=== PATIENT | female | born 1930 | race Caucasian/White ===

== ENCOUNTER → 2017-01-13 | Outpatient (CLI) | payer MEDICARE ==
[~2017-01-13] MED LIST: ASP81TEC PO; CALC-654 PO; CALC-793 PO; CLD600T; FERR-57 PO; LEVO750T6 PO; LISI-556 PO; LISI2.5T56 PO; LISI5TAB PO; LORA10TA7 PO; MECL-106 PO; MULT-305 PO; MULT1TAB63; ONDA8TAB9 PO; SCOP1PAT TD
--- NOTE | 2017-01-13 17:28 | Diagnostic Imaging Report ---
EXAMINATION: PA and lateral views of the chest. COMPARISON: 09/16/2010. INDICATION: Productive cough. FINDINGS: The lungs are hyperinflated with no focal infiltrate. The heart size is normal. No effusion or pneumothorax. The mediastinum and ankit appear unremarkable. IMPRESSION: Hyperinflated clear lungs. Dictated by: Dictated on workstation # [id number]
== END ==
LOC: RAD 14:48
PROVIDERS: ATTEND Nurse Practitioner
DX: R05 Cough (principal)
CPT/HCPCS: 71020

== ENCOUNTER → 2017-07-09 | Outpatient (CLI) | payer MEDICARE ==
--- NOTE | 2017-07-09 10:39 | Diagnostic Imaging Report ---
EXAMINATION: DEXA scan. INDICATION: Osteopenia. TECHNIQUE: Bone mineral density estimated based on dual energy radiography over the lumbar spine and femoral necks, was performed. FINDINGS: The lumbar spine T-score is -1. This is 4.7% decreased density measurement compared to 2002. The T score in the left femoral neck is -2.1 and on the right side is -2.6. This is 12.6% decreased density measurement compared to 2002. IMPRESSION: Osteoporosis. Dictated by: Dictated on workstation # [id number]
--- NOTE | 2017-07-10 09:13 | Diagnostic Imaging Report ---
Bilateral screening mammogram 2D views with tomosynthesis The current study was also evaluated with a Computer Aided Detection (CAD) system. Indication: Screening. No current complaints stated on the questionnaire. COMPARISON: 06/24/2016. FINDINGS: The breasts are composed of heterogeneously dense parenchyma which may decrease mammographic sensitivity. Benign-appearing calcifications and vascular opacifications are seen. Allowing for technique and positional differences, no suspicious change is seen. IMPRESSION: Dense breasts with no definite change. ACR BI-RADS Category 2: Benign findings. Result letter will be mailed to the patient. Note: At least 10% of breast cancer is not imaged by mammography. Dictated by: Dictated on workstation # [id number]
== END ==
LOC: RAD 08:35
PROVIDERS: ATTEND Internal Medicine
DX: Z12.31 Encounter for screening mammogram for malignant neoplasm of breast (principal); M81.0 Age-related osteoporosis without current pathological fracture
CPT/HCPCS: 77080

== ENCOUNTER → 2018-01-01 | Outpatient (CLI) | payer MEDICARE ==
[~2018-01-01] MED LIST changes: +ACHD5005 PO; +ASPI-586 PO; +MULT-884 PO; -SCOP1PAT TD; +SCOP1PAT11 TD
--- NOTE | 2018-01-01 14:54 | Diagnostic Imaging Report ---
PROCEDURE: CT chest without contrast. TECHNIQUE: Multiple contiguous axial images were obtained through the chest without the use of intravenous contrast. INDICATION: Cough. COMPARISON: 10/01/2010 and correlated with chest radiograph performed earlier this same date. FINDINGS: There is no evidence for a lung mass. In particular, at the level of the right lower lobe laterally, no focal pulmonary parenchymal abnormality is evident. There are some areas of sclerosis involving the distal right sixth and seventh ribs which may have accounted for the opacity observed at x-ray. No acute chest wall pathology. Some minimal biapical pleural prequel scarring, chronic. Some trace linear scarring in the left lower lobe where a previous dense cavitary infiltrate was present. There is no effusion or pneumothorax. There is no hilar or mediastinal adenopathy. IMPRESSION: No evidence for lung mass. Trace scarring in the left lower lobe at the site of a previous cavitary infiltrate. Some benign appearing sclerotic changes and right ribs superimposed may have accounted for the radiographic opacity alerted to earlier today. No acute or suspicious finding is identified, however. Dictated by: Dictated on workstation # [id number]
== END ==
LOC: RAD 13:57
PROVIDERS: ATTEND Physician Assistant
DX: R05 Cough (principal)
CPT/HCPCS: 71250

== ENCOUNTER → 2018-01-01 | Outpatient (CLI) | payer MEDICARE ==
--- NOTE | 2018-01-01 10:48 | Diagnostic Imaging Report ---
Indication: Cough. Comparison: 01/13/2017 Findings: Two views of the chest are obtained. Heart size is normal. The pulmonary vessels appear unremarkable. There is no pneumothorax, mediastinal widening or pleural fluid. There is a new 1.9 cm nodular density over the lateral right lower lobe concerning for pulmonary nodule. The lungs are otherwise clear. There is some flattening of the diaphragm suggestive of COPD. There are degenerative changes in the spine. Impression: There is a new 1.9 cm nodular density in the lateral right lower lobe somewhat concerning for a pulmonary nodule and neoplasm is not excluded. In the absence of acute symptoms of pneumonia, CT scan of the chest is recommended for further evaluation. Faxed to [facility] at 10:45 a.m. by iliana. Dictated by: Dictated on workstation # [id number]
== END ==
LOC: RAD 10:06
PROVIDERS: ATTEND Physician Assistant
DX: R91.1 Solitary pulmonary nodule (principal)
CPT/HCPCS: 71046

== ENCOUNTER 2018-01-14 05:34 | Outpatient (CLI) | payer MEDICARE ==
[~2018-01-14] VITALS: Ht 160 cm; Wt 55.8 kg
[~2018-01-14 05:34] MED LIST changes: -ACHD5005 PO; -ASPI-586 PO; -MULT-884 PO
[2018-01-14] MEDS ORDERED: MULT-884 PO (09:58)
[2018-01-14] MEDS ORDERED: ASPI-586 PO (09:58)
[2018-01-18] MEDS ORDERED: ACHD5005 PO (12:20)
== END 2018-01-14 10:44 | disposition home or self-care (01) ==
LOC: PREOP 05:34
PROVIDERS: ATTEND Surgery
DX: Z29.8 Encounter for other specified prophylactic measures (principal)

== ENCOUNTER → 2018-08-23 | Outpatient (CLI) | payer MEDICARE ==
[~2018-08-23] MED LIST changes: +ACHD5005 PO; +ASPI-586 PO; +MULT-884 PO
--- NOTE | 2018-08-24 19:10 | Diagnostic Imaging Report ---
EXAMINATION: Digital mammogram bilateral screening with 3D tomosynthesis. The current study was also evaluated with a Computer Aided Detection (CAD) system. INDICATION: Screening. This study was compared to the prior exams of 07/09/2017, 06/24/2016, and 06/12/2015. At this time, there are no current complaints. FINDINGS: The fibroglandular tissue in both breasts is heterogeneously dense. This does limit the sensitivity of this exam. Overall, there does not appear to have been any significant change when compared to the prior study. No primary or secondary sign of malignancy is noted. 3D tomographic images fail to show any sign of malignancy. IMPRESSION: There is no radiographic evidence for malignancy. ACR BI-RADS Category 1: Negative. Result letter will be mailed to the patient. Note: At least 10% of breast cancer is not imaged by mammography. Dictated by: Dictated on workstation # [id number]
== END ==
LOC: RAD 10:42
PROVIDERS: ATTEND Internal Medicine
DX: Z12.31 Encounter for screening mammogram for malignant neoplasm of breast (principal)
CPT/HCPCS: 77067

== ENCOUNTER 2018-08-28 17:32 | Inpatient (IN) | payer MEDICARE ==
[~2018-08-28] VITALS: Ht 160 cm; Wt 56.9 kg
[2018-08-28] MEDS ORDERED: NS IV 500 ML 500 ML IV SCH ×2 (17:45→19:15)
--- NOTE | 2018-08-28 17:47 | ED Cough/URI ---
General Chief Complaint: Chest Wall/Rib Pain Stated Complaint: COUGH/BODY ACHES Source: patient Exam Limitations: no limitations History of Present Illness Date Seen by Provider: Aug 28, 2018 Time Seen by Provider: 17:45 Initial Comments To ER with concerns of pneumonia accompanied by her daughter. These have been ongoing symptoms since Thursday, so for about 4 days now. No fevers. Her cough is occasionally productive. She does have rhinorrhea and nasal congestion. She has a history of pneumonia and is concerned about that. 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 Not been drinking as much for the past 2-3 days because she has no appetite. States that her ribs are sore from coughing and the cough keeps her awake at night. Timing/Duration: constant Severity/Quality: productive cough Modifying Factors: Improves With Coughing Associated Symptoms: chest pain/soreness, cough, muscle aches, nasal congestion , nasal drainage, sore throat Allergies and Home Medications Allergies Coded Allergies: Penicillins (Verified Allergy, Unknown, 02/16/08) Sulfa (Sulfonamide Antibiotics) (Verified Allergy, Unknown, 02/16/08) erythromycin base (Verified Allergy, Unknown, 02/16/08) Home Medications Aspirin 81 Mg Tablet.dr, 81 MG PO HS, (Reported) Calcium Carbonate/Vitamin D3 1 Each Tablet, 1 TAB PO HS, (Reported) Hydrocodone Bit/Acetaminophen 1 Tab Tab, 1 TAB PO Q6H PRN Prescribed by: SEAN PAN on 01/18/18 1220 Lisinopril 5 Mg Tablet, 5 MG PO DAILY, (Reported) Multivits,Ca,Minerals/Iron/FA 1 Each Tablet, 1 EACH PO DAILY, (Reported) Patient Home Medication List Home Medication List Reviewed: Yes Review of Systems Review of Systems Constitutional: see HPI EENTM: see HPI, nose congestion Respiratory: see HPI, cough Cardiovascular: no symptoms reported Genitourinary: no symptoms reported Musculoskeletal: no symptoms reported Skin: no symptoms reported Psychiatric/Neurological: No Symptoms Reported Past Tqtpgmy-Dzmztj-Yjqkec Hx Patient Social History Recent Foreign Travel: No Contact w/Someone Who Travel: No Recent Hopitalizations: No Immunizations Up To Date Tetanus Booster (TDap): Unknown Date of Pneumonia Vaccine: Apr 03, 2008 Seasonal Allergies Seasonal Allergies: Yes Past Medical History Pneumonia Currently Using CPAP: No Currently Using BIPAP: No High Cholesterol, Hypertension Reproductive Disorders: No Sexually Transmitted Disease: No HIV/AIDS: No Chronic Constipation Arthritis Cataract Loss of Vision: Denies Hearing Impairment: Denies Melanoma Anxiety Adverse Reaction/Blood Tranf: No Family Medical History Neoplasm 19 MOTHER Physical Exam Vital Signs - First Documented 08/28/18 18:06 Temp 97.9 Pulse 110 Resp 20 B/P (MAP) 119/73 (88) Pulse Ox 94 O2 Delivery Room Air Capillary Refill : Height: 5'3.00" Weight: 123lbs. 0.0oz. 55.054564mm; 21.8 BMI Method:Stated General Appearance: WD/WN, no apparent distress Eyes: Bilateral Eye Normal Inspection, Bilateral Eye PERRL, Bilateral Eye EOMI HEENT: PERRL/EOMI, normal ENT inspection, TMs normal, pharyngeal erythema Neck: non-tender, full range of motion Respiratory: normal breath sounds, no respiratory distress, no accessory muscle use; No crackles, No rales, No rhonchi, No stridor, No wheezing Cardiovascular: tachycardia Gastrointestinal: normal bowel sounds, non tender, soft Neurologic/Psychiatric: alert, normal mood/affect, oriented x 3 Skin: normal color, warm/dry Progress/Results/Core Measures Suspected Sepsis SIRS Temperature: Pulse: Respiratory Rate: Laboratory Tests 08/28/18 17:53: White Blood Count 13.0H Blood Pressure / Mean: Laboratory Tests 08/28/18 17:53: Creatinine 0.83, Platelet Count 234, Total Bilirubin 0.9 Results/Orders Lab Results Laboratory Tests Test 08/28/18 17:53 Range/Units White Blood Count 13.0 H 4.3-11.0 10^3/uL Red Blood Count 4.09 L 4.35-5.85 10^6/uL Hemoglobin 12.4 11.5-16.0 G/DL Hematocrit 37 35-52 % Mean Corpuscular Volume 91 80-99 FL Mean Corpuscular Hemoglobin 30 25-34 PG Mean Corpuscular Hemoglobin Concent 33 32-36 G/DL Red Cell Distribution Width 13.8 10.0-14.5 % Platelet Count 234 130-400 10^3/uL Mean Platelet Volume 9.5 7.4-10.4 FL Neutrophils (%) (Auto) 85 H 42-75 % Lymphocytes (%) (Auto) 5 L 12-44 % Monocytes (%) (Auto) 9 0-12 % Eosinophils (%) (Auto) 0 0-10 % Basophils (%) (Auto) 0 0-10 % Neutrophils # (Auto) 11.1 H 1.8-7.8 X 10^3 Lymphocytes # (Auto) 0.6 L 1.0-4.0 X 10^3 Monocytes # (Auto) 1.2 H 0.0-1.0 X 10^3 Eosinophils # (Auto) 0.0 0.0-0.3 10^3/uL Basophils # (Auto) 0.0 0.0-0.1 10^3/uL Neutrophils % (Manual) 90 % Lymphocytes % (Manual) 4 % Monocytes % (Manual) 6 % Eosinophils % (Manual) 0 % Basophils % (Manual) 0 % Band Neutrophils 0 % Blood Morphology Comment NORMAL Erythrocyte Sedimentation Rate 99 H 0-30 MM/HR Sodium Level 126 L 135-145 MMOL/L Potassium Level 4.5 3.6-5.0 MMOL/L Chloride Level 95 L 98-107 MMOL/L Carbon Dioxide Level 20 L 21-32 MMOL/L Anion Gap 11 5-14 MMOL/L Blood Urea Nitrogen 16 7-18 MG/DL Creatinine 0.83 0.60-1.30 MG/DL Estimat Glomerular Filtration Rate > 60 BUN/Creatinine Ratio 19 Glucose Level 117 H 70-105 MG/DL Calcium Level 9.4 8.5-10.1 MG/DL Corrected Calcium 9.4 8.5-10.1 MG/DL Total Bilirubin 0.9 0.1-1.0 MG/DL Aspartate Amino Transf (AST/SGOT) 86 H 5-34 U/L Alanine Aminotransferase (ALT/SGPT) 59 H 0-55 U/L Alkaline Phosphatase 240 H 40-136 U/L C-Reactive Protein High Sensitivity 26.81 H 0.00-0.50 MG/DL Total Protein 7.7 6.4-8.2 GM/DL Albumin 4.0 3.2-4.5 GM/DL My Orders Orders - SAMI SHIPLEY FLEET ASSISTANT Cbc With Automated Diff (08/28/18 17:44) Erythrocyte Sedimentation Rate (08/28/18 17:44) Hs C Reactive Protein (08/28/18 17:44) Comprehensive Metabolic Panel (08/28/18 17:44) Chest Pa/Lat (2 View) (08/28/18 17:44) Iv Heplock-Insert (Order) (08/28/18 17:44) Influenza A And B Antigens (08/28/18 17:44) Ns Iv 500 Ml (Sodium Chloride 0.9%) (08/28/18 17:45) Rx-Acetaminophen/Codeine (Rx-Tylenol #3) (08/28/18 17:45) Manual Differential (08/28/18 17:53) Blood Culture (08/28/18 18:12) Ceftriaxone For Iv Use (Rocephin For I (08/28/18 18:15) Vital Signs/I&O 08/28/18 08/28/18 18:06 18:06 Temp 97.9 Pulse 110 Resp 20 B/P (MAP) 119/73 (88) Pulse Ox 94 O2 Delivery Room Air Capillary Refill : Departure Communication (Admissions) Time/Spoke to Admitting Phy: 18:[address] Brown. We will admit observation status for hydration, repeat labs in the morning. Will use Rocephin alone since she is allergic to macrolide. Impression Primary Impression: Right lower lobe pneumonia Additional Impressions: Hyponatremia Elevated LFTs Disposition: ADMITTED INPATIENT Condition: Stable Admissions Decision to Admit Reason: Admit from ER (General) Decision to Admit/Date: Aug 28, 2018 Time/Decision to Admit Time: 18:43 Departure-Patient Inst. Referrals: EZRA SIMMONS MD (PCP/Family) Primary Care Physician SAMI SHIPLEY APRN Aug 28, 2018 17:47
--- OUTSIDE RECORDS SUMMARY | 2018-08-28 17:57 | XMS REPORT | Encounter Summary ---
Author Author [facility] Organization [facility] Address Unknown Phone Unavailable Care Team Providers Care Edge Stainer Machine Name Role Phone Abner Bonilla MD Unavailable Unavailable Antwan Oro MD PCP Ed Robledo MD Unavailable Prince Peterson MD Unavailable Unavailable Rodri Caballero Unavailable Carissa Pena RN Unavailable Unavailable Antwan Ramirez MD Unavailable Reason for Visit * Reason Comments Other Encounter Details Care Team Description Date Type Department Rodri Caballero MBBS [address] [facility] [address] [place] [address] Other 08/19/2018 Telephone [facility] - Internal Medicine [facility] [address] [place] [address] Social History Date Tobacco Use Types Packs/Day Years Used Never Smoker Smokeless Tobacco: Never Used Alcohol Use Drinks/Week oz/Week Comments Yes 4-5 Standard 2.0 - 2.5 social drinker drinks or equivalent Sex Assigned at Date Recorded Not on file Industry Job Start Date Occupation Not on file Not on file Not on file Travel End Travel History Travel Start No recent travel history available. as of this encounter Miscellaneous Notes * Telephone Encounter - Patsy Garcia RN - 08/19/2018 2:36 PM CORPORATE DIRECTOR Received VM from patient asking if she needed labs prior to november appt. Verbal order from Dr. Caballero to have BMP. Order placed and patient notified. Will come early day of appt to have labs drawn at . ORATE DIRECTOR in this encounter Plan of Treatment Order Schedule Name Priority Associated Diagnoses Expected: 12/02/2018 (Approximate), Expires: 08/19/2019 BASIC METABOLIC PANEL Routine Chronic kidney disease, unspecified CKD stage as of this encounter Visit Diagnoses Diagnosis Chronic kidney disease, unspecified CKD stage - Primary in this encounter
--- OUTSIDE RECORDS SUMMARY | 2018-08-28 17:57 | XMS REPORT | Clinical Summary ---
Author Author [facility] Organization [facility] Address Unknown Phone Unavailable Care Team Providers Care Machine Operator Cane Cutter Name Role Phone Abner Bonilla MD Unavailable Unavailable Antwan Oro MD PCP Ed Robledo MD Unavailable Prince Peterson MD Unavailable Unavailable Rodri Caballero Unavailable Carissa Pena RN Unavailable Unavailable Antwan Ramirez MD Unavailable Source Comments Some departments are not documenting in the electronic medical record. If you do not see the information that you expected, contact Release of Information in the Health Information Management department at [phone] for further assistance in locating additional records.[facility] Allergies Comments Active Allergy Reactions Severity Noted Date Itraconazole HEADACHE, 12/11/2011 HALLUCINATION S Penicillins EDEMA 12/18/2010 Sulfa (Sulfonamide HIVES 12/18/2010 Antibiotics) Medications End Date Status Medication Sig Dispensed Refills Start Date Active lisinopril (PRINIVIL; Take 5 mg by 0 ZESTRIL) 5 mg PO tablet mouth daily. Active CALCIUM CARBONATE/VITAMIN Take 1 Tab by 0 D3 (CALCIUM 600 WITH mouth daily. VITAMIN D3 PO) Active Aspirin 81 mg Tab Take 1 Tab by 0 mouth daily. Active MULTIVITAMIN PO Take 1 Tab by 0 mouth daily. 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 12/18/2010 Lung mass 12/18/2010 History of renal failure 12/18/2010 Encounters Care Team Description Date Type Specialty Rodri Caballero MBBS Other 08/19/2018 Telephone Nephrology from Last 3 Months Immunizations Name Dates Previously Given Next Due Flu Vaccine Trivalent=>3 04/25/2013 Yo (Preservative Free) Flu Vaccine Trivalent >64 06/14/2015 Yo High-dose (Preservative Free) Pneumococcal Vaccine 04/25/2013 (23-Michelle Adult) Family History Medical History Relation Name Comments Cirrhosis Father Cancer Mother multiple myeloma Asthma Neg Hx Blood Clots Neg Hx COPD Neg Hx Coronary Artery Disease Neg Hx Cystic Fibrosis Neg Hx DVT Neg Hx Pulmonary Embolism Neg Hx Pulmonary Fibrosis Neg Hx Pulmonary HTN Neg Hx Relation Name Status Comments Father Mother Social History Date Tobacco Use Types Packs/Day [...] Travel Start No recent travel history available. Last Filed Vital Signs Time Taken Vital Sign Reading 12/24/2017 12:48 PM CDT Blood Pressure 120/82 12/24/2017 12:48 PM CDT Pulse 95 12/24/2017 12:42 PM CDT Temperature 36.7 C (98.1 F) 12/04/2016 1:09 PM CDT Respiratory Rate 16 06/05/2014 1:07 PM DEMURRAGE AGENT Oxygen Saturation 94% - Inhaled Oxygen - Concentration 12/24/2017 12:42 PM CDT Weight 56.1 kg (123 lb 9.6 oz) 12/24/2017 12:42 PM CDT Height 160 cm (5' 3") 12/24/2017 12:42 PM CDT Body Mass Index 21.89 Plan of Treatment Health Maintenance Due Date Last Done Comments PHYSICAL (COMPREHENSIVE) 1938 EXAM DTAP/TDAP VACCINES (1 - 1949 Tdap) SHINGLES RECOMBINANT 1981 VACCINE (1 of 2) OSTEOPOROSIS 1996 SCREENING/MONITORING PNEUMONIA (PCV13/PPSV23) 04/25/2014 04/25/2013 VACCINES (2 of 2 - PCV13) INFLUENZA VACCINE 02/24/2018 06/14/2015, 04/25/2013, 05/17/2012, Additional history exists Results Not on filefrom Last 3 Months Insurance Payer Benefit Subscriber ID Type Phone Address Plan / Group MEDICARE MEDICARE xxxxxxxxxx Medicare PART A AND B BCBS BCBS xxxxxxxxxxxx Medicare SUPPLEMENT Advance Directives Patient has advance care planning documents on file. For more information, please contact: [facility] [address] [place] [address]
--- OUTSIDE RECORDS SUMMARY | 2018-08-28 17:58 | XMS REPORT | Continuity of Care Document ---
Author Author [facility] Organization [facility] Address Unknown Phone Unavailable Allergies Active Description Code Type Severity Reaction Onset Reported/Identified Relationship to Patient Clinical Status Yes erythromycin base [id number] Drug Allergy Unknown N/A 02/16/2008 Yes Penicillins [id number] Drug Allergy Unknown N/A 02/16/2008 Yes Sulfa (Sulfonamide Antibiotics) [id number] Drug Allergy Unknown N/A 2007 Medications There is no data. Problems Date Dx Coded Attending Type Code Diagnosis Diagnosed By 06/26/2009 Ot 272.0 06/26/2009 Ot 285.9 06/26/2009 Ot 447.6 06/26/2009 Ot 583.9 06/26/2009 Ot 585.2 10/30/2009 Ot 447.6 10/30/2009 Ot V58.69 01/29/2010 Ot 447.6 01/29/2010 Ot 791.9 01/29/2010 Ot V58.69 04/30/2010 Ot 272.0 04/30/2010 Ot 447.6 04/30/2010 Ot 791.9 04/30/2010 Ot V58.69 08/06/2010 Ot 285.9 08/06/2010 Ot 486 08/06/2010 Ot 799.02 08/06/2010 Ot V12.59 08/06/2010 Ot V12.79 11/28/2010 Ot 791.9 ABN URINE FINDINGS NEC 11/28/2010 Ot V58.69 OTH MED,LT, CURRENT USE 11/28/2010 Ot V58.83 ENCOUNTER FOR THERAPEUTIC DRUG MONITORIN 02/26/2011 Ot 272.0 PURE HYPERCHOLESTEROLEM 02/26/2011 Ot 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.6 ARTERITIS NOS 02/26/2011 Ot 585.2 CHRONIC KIDNEY DISEASE, STAGE II (MILD) 02/26/2011 Ot 791.9 ABN URINE FINDINGS NEC 02/26/2011 Ot V58.69 OTH MED,LT, CURRENT USE 05/27/2011 Ot 447.6 ARTERITIS NOS 05/27/2011 Ot V58.69 OTH MED,LT, CURRENT USE 09/11/2011 Ot 447.6 ARTERITIS NOS 09/11/2011 Ot V58.69 OTH MED,LT, CURRENT USE 10/13/2011 Ot V58.69 OTH MED,LT, CURRENT USE 10/13/2011 Ot V58.83 ENCOUNTER FOR THERAPEUTIC DRUG MONITORIN 12/17/2011 Ot 447.6 ARTERITIS NOS 12/17/2011 Ot V58.69 OTH MED,LT, CURRENT USE 12/17/2011 Ot 117.3 ASPERGILLOSIS 12/17/2011 Ot 786.6 CHEST SWELLING/MASS/LUMP 12/17/2011 Ot V58.69 OTH MED,LT, CURRENT USE 03/14/2012 Ot 272.0 PURE HYPERCHOLESTEROLEM 03/14/2012 Ot 447.6 ARTERITIS NOS 03/14/2012 Ot 585.2 CHRONIC KIDNEY DISEASE, STAGE II (MILD) 03/14/2012 Ot 791.9 ABN URINE FINDINGS NEC 03/14/2012 Ot V58.69 OTH MED,LT, CURRENT USE 07/13/2012 Ot 117.3 ASPERGILLOSIS 07/13/2012 Ot V58.69 OTH MED,LT, CURRENT USE 07/24/2014 EZRA SIMMONS MD Ot V76.12 11/15/2014 Ot 272.0 11/15/2014 Ot 285.9 11/15/2014 Ot 583.9 11/15/2014 Ot 585.2 11/15/2014 Ot 583.9 11/15/2014 Ot 447.6 11/15/2014 Ot 791.9 11/15/2014 Ot V58.69 11/15/2014 Ot 272.0 11/15/2014 Ot V76.12 11/15/2014 Ot 272.0 11/15/2014 Ot 447.6 11/15/2014 Ot 791.9 11/15/2014 Ot V58.69 11/15/2014 Ot 268.9 11/15/2014 Ot 585.2 11/15/2014 Ot 447.6 11/15/2014 Ot V58.69 11/15/2014 Ot 486 11/15/2014 Ot 496 11/15/2014 Ot 486 11/15/2014 Ot 486 11/15/2014 Ot 486 11/15/2014 Ot 793.1 11/15/2014 Ot V81.5 11/15/2014 Ot 272.0 11/15/2014 Ot 585.2 11/15/2014 Ot 268.9 11/15/2014 Ot 793.89 11/15/2014 Ot V76.12 11/15/2014 Ot 793.80 11/15/2014 Ot 268.9 11/15/2014 Ot 272.0 11/15/2014 Ot 585.2 11/15/2014 Ot 588.81 11/15/2014 Ot 793.80 11/15/2014 Ot 786.6 11/15/2014 Ot V58.69 11/15/2014 Ot 784.0 11/15/2014 Ot 117.3 11/15/2014 Ot 447.6 11/15/2014 Ot 786.6 11/15/2014 Ot 117.3 11/15/2014 Ot 447.6 11/15/2014 Ot 786.6 11/15/2014 Ot 268.9 11/15/2014 Ot 583.9 11/15/2014 Ot 272.0 11/15/2014 Ot 447.6 11/15/2014 Ot 585.2 11/15/2014 Ot 791.9 11/15/2014 Ot V58.69 11/15/2014 Ot V76.12 11/15/2014 Ot 268.9 11/15/2014 Ot 272.0 11/15/2014 Ot 585.9 11/15/2014 Ot 272.4 11/15/2014 Ot 401.9 11/15/2014 Ot 447.6 11/15/2014 Ot V58.69 11/15/2014 Ot 117.3 11/15/2014 Ot V58.69 11/15/2014 Ot 268.9 11/15/2014 Ot 272.0 11/15/2014 Ot 585.1 11/15/2014 ELIZABETH KIM CHIEF INFORMATION SECURITY OFFICER Ot 401.9 11/15/2014 ELIZABETH KIM CHIEF INFORMATION SECURITY OFFICER Ot 447.6 11/15/2014 ELIZABETH KIM CHIEF INFORMATION SECURITY OFFICER Ot 791.9 11/15/2014 ELIZABETH KIM CHIEF INFORMATION SECURITY OFFICER Ot V58.69 11/15/2014 IRIS RAMESH, EZRA Gusman Ot V76.12 11/15/2014 KUSHAL RAMESH, AVA Mahan Ot 268.9 11/15/2014 KUSHAL RAMESH, AHMAD M Ot 447.8 11/15/2014 KUSHAL RAMESH, CAMELIAMAD M Ot 585.9 11/15/2014 KUSHAL RAMESH, AVA M Ot 268.9 11/15/2014 KUSHAL RAMESH, AVA M Ot 447.8 11/15/2014 IRIS RAMESH, EZRA Gusman Ot 401.9 11/15/2014 IRIS RAMESH, EZRA Gusman Ot 447.6 11/15/2014 IRIS RAMESH, EZRA Gusman Ot V58.69 11/15/2014 KUSHAL RAMESH, CAMELIANAN M Ot 268.9 11/15/2014 KUSHAL RAMESH, CAMELIAMANaseem M Ot 585.9 11/15/2014 KUSHAL RAMESH, AVA M Ot 255.9 11/15/2014 KUSHAL RAMESH, AVA M Ot 268.9 11/15/2014 KUSHAL RAMESH, MARYNaseem M Ot 585.9 11/15/2014 KUSHAL RAMESH, CAMELIANAN M Ot 791.0 11/15/2014 IRIS RAMESH, EZRA Gusman Ot V76.12 12/08/2014 KUSHAL RAMESH, CAMELIANAN M Ot 447.6 05/31/2015 KUSHAL RAMESH, MARYD M Ot I77.6 07/04/2015 IRIS RAMESH, EZRA Gusman Ot Z12.31 12/26/2015 Ot 574.20 12/26/2015 Ot 592.0 01/25/2016 Ot 268.9 VITAMIN D DEFICIENCY NOS 01/25/2016 Ot 268.9 VITAMIN D DEFICIENCY NOS 01/25/2016 Ot 272.0 PURE HYPERCHOLESTEROLEM 01/25/2016 Ot 585.9 CHRONIC KIDNEY DISEASE, UNSPECIFIED 03/27/2016 Ot 574.20 03/27/2016 Ot 592.0 03/27/2016 Ot 268.9 VITAMIN D DEFICIENCY NOS 03/27/2016 Ot 272.0 PURE HYPERCHOLESTEROLEM 03/27/2016 Ot 585.9 CHRONIC KIDNEY DISEASE, UNSPECIFIED 04/04/2016 ANNA LEA DO Ot I10 ESSENTIAL (PRIMARY) HYPERTENSION 04/04/2016 ANNA LEA DO Ot N39.0 URINARY TRACT INFECTION, SITE NOT SPECIF 04/04/2016 ANNA LEA DO Ot R42 DIZZINESS AND GIDDINESS 04/04/2016 LEA DO, ANNA Ot 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 04/04/2016 ANNA LEA DO Ot I10 ESSENTIAL (PRIMARY) HYPERTENSION 04/04/2016 ANNA LEA DO Ot N39.0 URINARY TRACT INFECTION, SITE NOT SPECIF 04/04/2016 ANNA LEA DO Ot R42 DIZZINESS AND GIDDINESS 04/04/2016 ANNA LEA DO Ot 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 04/07/2016 Ot 272.0 PURE HYPERCHOLESTEROLEM 04/07/2016 Ot 585.2 CHRONIC KIDNEY DISEASE, STAGE II (MILD) 04/07/2016 Ot 268.9 VITAMIN D DEFICIENCY NOS 04/07/2016 Ot 793.89 OTH (ABN) FINDINGS ON RADIOLOGICAL EXAMI 04/07/2016 Ot V76.12 OTH SCREEN MAMMO-MALIGN NEOPLASM OF DONTRELL 04/07/2016 Ot 793.80 UNSPEC ABNORMAL MAMMOGRAM 04/07/2016 Ot 268.9 VITAMIN D DEFICIENCY NOS 04/07/2016 Ot 272.0 PURE HYPERCHOLESTEROLEM 04/07/2016 Ot 585.2 CHRONIC KIDNEY DISEASE, STAGE II (MILD) 04/07/2016 Ot 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 04/07/2016 Ot 793.80 UNSPEC ABNORMAL MAMMOGRAM 04/07/2016 Ot 786.6 CHEST SWELLING/MASS/LUMP 04/07/2016 Ot V58.69 OTH MED,LT, CURRENT USE 04/07/2016 Ot 784.0 HEADACHE 04/07/2016 Ot 117.3 ASPERGILLOSIS 04/07/2016 Ot 447.6 ARTERITIS NOS 04/07/2016 Ot 786.6 CHEST SWELLING/MASS/LUMP 04/07/2016 Ot 117.3 ASPERGILLOSIS 04/07/2016 Ot 447.6 ARTERITIS NOS 04/07/2016 Ot 786.6 CHEST SWELLING/MASS/LUMP 04/07/2016 Ot 268.9 VITAMIN D DEFICIENCY NOS 04/07/2016 Ot 583.9 NEPHRITIS NOS 04/07/2016 Ot 272.0 PURE HYPERCHOLESTEROLEM 04/07/2016 Ot 447.6 ARTERITIS NOS 04/07/2016 Ot 585.2 CHRONIC KIDNEY DISEASE, STAGE II (MILD) 04/07/2016 Ot 791.9 ABN URINE FINDINGS NEC 04/07/2016 Ot V58.69 OTH MED,LT, CURRENT USE 04/07/2016 Ot V76.12 OTH SCREEN MAMMO-MALIGN NEOPLASM OF [place]RE[place] 04/07/2016 Ot 268.9 VITAMIN D DEFICIENCY NOS 04/07/2016 Ot 272.0 PURE HYPERCHOLESTEROLEM 04/07/2016 Ot 585.9 CHRONIC KIDNEY DISEASE, UNSPECIFIED 04/07/2016 Ot 272.4 HYPERLIPIDEMIA NEC/NOS 04/07/2016 Ot 401.9 HYPERTENSION NOS 04/07/2016 Ot 447.6 ARTERITIS NOS 04/07/2016 Ot V58.69 OTH MED,LT, CURRENT USE 04/07/2016 Ot 117.3 ASPERGILLOSIS 04/07/2016 Ot V58.69 OTH MED,LT, CURRENT USE 04/07/2016 Ot 268.9 VITAMIN D DEFICIENCY NOS 04/07/2016 Ot 272.0 PURE HYPERCHOLESTEROLEM 04/07/2016 Ot 585.1 CHRONIC KIDNEY DISEASE, STAGE I 04/07/2016 ELIZABETH KIM CHIEF INFORMATION SECURITY OFFICER Ot 401.9 HYPERTENSION NOS 04/07/2016 ELIZABETH KIM CHIEF INFORMATION SECURITY OFFICER Ot 447.6 ARTERITIS NOS 04/07/2016 ELIZABETH KIM CHIEF INFORMATION SECURITY OFFICER Ot 791.9 ABN URINE FINDINGS NEC 04/07/2016 ELIZABETH KIM CHIEF INFORMATION SECURITY OFFICER Ot V58.69 OTH MED,LT,CURRENT USE 04/07/2016 IRIS RAMESH, EZRA Gusman Ot V76.12 OTH SCREEN MAMMO-MALIGN NEOPLASM OF DONTRELL 04/07/2016 AVA FATIMA MD Ot 268.9 VITAMIN D DEFICIENCY NOS 04/07/2016 AVA FATIMA MD Ot 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 04/07/2016 AVA FATIMA MD Ot 585.9 CHRONIC KIDNEY DISEASE, UNSPECIFIED 04/07/2016 AVA FATIMA MD Ot 268.9 VITAMIN D DEFICIENCY NOS 04/07/2016 AVA FATIMA MD Ot 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 04/07/2016 EZRA SIMMONS MD Ot 401.9 HYPERTENSION NOS 04/07/2016 EZRA SIMMONS MD Ot 447.6 ARTERITIS NOS 04/07/2016 EZRA SIMMONS MD Ot V58.69 OTH MED,LT,CURRENT USE 04/07/2016 AVA FATIMA MD Ot 268.9 VITAMIN D DEFICIENCY NOS 04/07/2016 AVA FATIMA MD Ot 585.9 CHRONIC KIDNEY DISEASE, UNSPECIFIED 04/07/2016 KUSHAL RAMESH, AVA Mahan Ot 255.9 ADRENAL DISORDER N0S 04/07/2016 KUSHAL RAMESH, AVA Mahan Ot 268.9 VITAMIN D DEFICIENCY NOS 04/07/2016 KUSHAL RAMESH, AVA Mahan Ot 585.9 CHRONIC KIDNEY DISEASE, UNSPECIFIED 04/07/2016 KUSHAL RAMESH, AVA Mahan Ot 791.0 PROTEINURIA 04/07/2016 IRIS RAMESH, EZRA Gusman Ot V76.12 OTH SCREEN MAMMO-MALIGN NEOPLASM OF DONTRELL 04/07/2016 KUSHAL RAMESH, AVA Mahan Ot 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.6 ARTERITIS NOS 04/07/2016 KUSHAL RAMESH, AVA Mahan Ot I77.6 ARTERITIS, UNSPECIFIED 04/07/2016 IRIS RAMESH, EZRA Gusman Ot Z12.31 ENCNTR SCREEN MAMMOGRAM FOR MALIGNANT NE 05/12/2016 Ot 272.0 PURE HYPERCHOLESTEROLEM 05/12/2016 Ot 585.2 CHRONIC KIDNEY DISEASE, STAGE II (MILD) 05/12/2016 Ot 268.9 VITAMIN D DEFICIENCY NOS 05/12/2016 Ot 793.89 OTH (ABN) FINDINGS ON RADIOLOGICAL EXAMI 05/12/2016 Ot V76.12 OTH SCREEN MAMMO-MALIGN NEOPLASM OF DONTRELL 05/12/2016 Ot 793.80 UNSPEC ABNORMAL MAMMOGRAM 05/12/2016 Ot 268.9 VITAMIN D DEFICIENCY NOS 05/12/2016 Ot 272.0 PURE HYPERCHOLESTEROLEM 05/12/2016 Ot 585.2 CHRONIC KIDNEY DISEASE, STAGE II (MILD) 05/12/2016 Ot 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 05/12/2016 Ot 793.80 UNSPEC ABNORMAL MAMMOGRAM 05/12/2016 Ot 786.6 CHEST SWELLING/MASS/LUMP 05/12/2016 Ot V58.69 OTH MED,LT, CURRENT USE 05/12/2016 Ot 784.0 HEADACHE 05/12/2016 Ot 117.3 ASPERGILLOSIS 05/12/2016 Ot 447.6 ARTERITIS NOS 05/12/2016 Ot 786.6 CHEST SWELLING/MASS/LUMP 05/12/2016 Ot 117.3 ASPERGILLOSIS 05/12/2016 Ot 447.6 ARTERITIS NOS 05/12/2016 Ot 786.6 CHEST SWELLING/MASS/LUMP 05/12/2016 Ot 268.9 VITAMIN D DEFICIENCY NOS 05/12/2016 Ot 583.9 NEPHRITIS NOS 05/12/2016 Ot 272.0 PURE HYPERCHOLESTEROLEM 05/12/2016 Ot 447.6 ARTERITIS NOS 05/12/2016 Ot 585.2 CHRONIC KIDNEY DISEASE, STAGE II (MILD) 05/12/2016 Ot 791.9 ABN URINE FINDINGS NEC 05/12/2016 Ot V58.69 OTH MED,LT, CURRENT USE 05/12/2016 Ot V76.12 OTH SCREEN MAMMO-MALIGN NEOPLASM OF DONTRELL 05/12/2016 Ot 268.9 VITAMIN D DEFICIENCY NOS 05/12/2016 Ot 272.0 PURE HYPERCHOLESTEROLEM 05/12/2016 Ot 585.9 CHRONIC KIDNEY DISEASE, UNSPECIFIED 05/12/2016 Ot 272.4 HYPERLIPIDEMIA NEC/NOS 05/12/2016 Ot 401.9 HYPERTENSION NOS 05/12/2016 Ot 447.6 ARTERITIS NOS 05/12/2016 Ot V58.69 OTH MED,LT, CURRENT USE 05/12/2016 Ot 117.3 ASPERGILLOSIS 05/12/2016 Ot V58.69 OTH MED,LT, CURRENT USE 05/12/2016 Ot 268.9 VITAMIN D DEFICIENCY NOS 05/12/2016 Ot 272.0 PURE HYPERCHOLESTEROLEM 05/12/2016 Ot 585.1 CHRONIC KIDNEY DISEASE, STAGE I 05/12/2016 ELIZABETH KIM CHIEF INFORMATION SECURITY OFFICER Ot 401.9 HYPERTENSION NOS 05/12/2016 ELIZABETH KIM CHIEF INFORMATION SECURITY OFFICER Ot 447.6 ARTERITIS NOS 05/12/2016 ELIZABETH KIM APRN Ot 791.9 ABN URINE FINDINGS NEC 05/12/2016 ELIZABETH KIM APRN Ot V58.69 OTH MED,LT,CURRENT USE 05/12/2016 EZRA SIMMONS MD Ot V76.12 OTH SCREEN MAMMO-MALIGN NEOPLASM OF DONTRELL 05/12/2016 KUSHAL RAMESH, AVA Mahan Ot 268.9 VITAMIN D DEFICIENCY NOS 05/12/2016 AVA FATIMA MD Ot 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 05/12/2016 AVA FATIMA MD Ot 585.9 CHRONIC KIDNEY DISEASE, UNSPECIFIED 05/12/2016 AVA FATIMA MD Ot 268.9 VITAMIN D DEFICIENCY NOS 05/12/2016 AVA FATIMA MD Ot 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 05/12/2016 EZRA SIMMONS MD Ot 401.9 HYPERTENSION NOS 05/12/2016 EZRA SIMMONS MD Ot 447.6 ARTERITIS NOS 05/12/2016 EZRA SIMMONS MD Ot V58.69 OTH MED,LT,CURRENT USE 05/12/2016 KUSHAL RAMESH, AVA Mahan Ot 268.9 VITAMIN D DEFICIENCY NOS 05/12/2016 KUSHAL RAMESH, AVA Mahan Ot 585.9 CHRONIC KIDNEY DISEASE, UNSPECIFIED 05/12/2016 AVA FATIMA MD Ot 255.9 ADRENAL DISORDER N0S 05/12/2016 AVA FATIMA MD Ot 268.9 VITAMIN D DEFICIENCY NOS 05/12/2016 AVA FATIMA MD Ot 585.9 CHRONIC KIDNEY DISEASE, UNSPECIFIED 05/12/2016 AVA FATIMA MD Ot 791.0 PROTEINURIA 05/12/2016 EZRA SIMMONS MD Ot V76.12 OTH SCREEN MAMMO-MALIGN NEOPLASM OF DONTRELL 05/12/2016 AVA FATIMA MD Ot 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.6 ARTERITIS NOS 05/12/2016 AVA FATIMA MD Ot I77.6 ARTERITIS, UNSPECIFIED 05/12/2016 EZRA SIMMONS MD Ot Z12.31 ENCNTR SCREEN MAMMOGRAM FOR MALIGNANT NE 05/13/2016 AVA FATIMA MD Ot I77.6 ARTERITIS, UNSPECIFIED 06/03/2016 AVA FATIMA MD Ot I77.6 ARTERITIS, UNSPECIFIED 06/06/2016 AVA FATIMA MD Ot N18.9 CHRONIC KIDNEY DISEASE, UNSPECIFIED 06/25/2016 EZRA SIMMONS MD Ot Z12.31 ENCNTR SCREEN MAMMOGRAM FOR MALIGNANT NE 06/25/2016 EZRA SIMMONS MD Ot Z12.31 ENCNTR SCREEN MAMMOGRAM FOR MALIGNANT NE 06/27/2016 AVA FATIMA MD Ot N18.9 CHRONIC KIDNEY DISEASE, UNSPECIFIED 07/15/2016 EZRA SIMMONS MD Ot Z12.31 ENCNTR SCREEN MAMMOGRAM FOR MALIGNANT NE 01/14/2017 ELIZABETH KIM CHIEF INFORMATION SECURITY OFFICER Ot R05 COUGH 02/05/2017 ELIZABETH KIM APRN Ot R05 COUGH 02/16/2017 ELIZABETH KIM CHIEF INFORMATION SECURITY OFFICER Ot R05 COUGH 07/09/2017 EZRA SIMMONS MD Ot M81.0 AGE-RELATED OSTEOPOROSIS W/O CURRENT PAT 07/09/2017 EZRA SIMMONS MD Ot Z12.31 ENCNTR SCREEN MAMMOGRAM FOR MALIGNANT NE 07/30/2017 EZRA SIMMONS MD Ot M81.0 AGE-RELATED OSTEOPOROSIS W/O CURRENT PAT 07/30/2017 EZRA SIMMONS MD Ot Z12.31 ENCNTR SCREEN MAMMOGRAM FOR MALIGNANT NE 01/01/2018 Ot 117.3 ASPERGILLOSIS 01/01/2018 Ot V58.69 OTH MED,LT, CURRENT USE 01/01/2018 Ot 268.9 VITAMIN D DEFICIENCY NOS 01/01/2018 Ot 272.0 PURE HYPERCHOLESTEROLEM 01/01/2018 Ot 585.1 CHRONIC KIDNEY DISEASE, STAGE I 01/01/2018 ELIZABETH KIM CHIEF INFORMATION SECURITY OFFICER Ot 401.9 HYPERTENSION NOS 01/01/2018 ELIZABETH KIM APRN Ot 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9 HYPERTENSION NOS 01/01/2018 EZRA SIMMONS MD Ot 447.6 ARTERITIS NOS 01/01/2018 EZRA SIMMONS MD Ot V58.69 OTH MED,LT,CURRENT USE 01/01/2018 AVA FATIMA MD Ot 268.9 VITAMIN D DEFICIENCY NOS 01/01/2018 AVA FATIMA MD Ot 585.9 CHRONIC KIDNEY DISEASE, UNSPECIFIED 01/01/2018 AVA FATIMA MD Ot 255.9 ADRENAL DISORDER N0S 01/01/2018 AVA FATIMA MD Ot 268.9 VITAMIN D DEFICIENCY NOS 01/01/2018 AVA FAITMA MD Ot 585.9 CHRONIC KIDNEY DISEASE, UNSPECIFIED 01/01/2018 KUSHAL RAMESH, AVA Mahan Ot 791.0 PROTEINURIA 01/01/2018 IRIS RAMESH, EZRA Gusman Ot V76.12 OTH SCREEN MAMMO-MALIGN NEOPLASM OF DONTRELL 01/01/2018 KUSHAL RAMESH, AVA Mahan Ot 447.6 ARTERITIS NOS 01/01/2018 AVA FATIMA MD Ot I77.6 ARTERITIS, UNSPECIFIED 01/01/2018 EZRA SIMMONS MD Ot Z12.31 ENCNTR SCREEN MAMMOGRAM FOR MALIGNANT NE 01/01/2018 AVA FATIMA MD Ot I77.6 ARTERITIS, UNSPECIFIED 01/01/2018 AVA FATIMA MD Ot N18.9 CHRONIC KIDNEY DISEASE, UNSPECIFIED 01/01/2018 EZRA SIMMONS MD Ot Z12.31 ENCNTR SCREEN MAMMOGRAM FOR MALIGNANT NE 01/01/2018 ELIZABETH KIM APRN Ot R05 COUGH 01/01/2018 EZRA SIMMONS MD Ot M81.0 AGE-RELATED OSTEOPOROSIS W/O CURRENT PAT 01/01/2018 EZRA SIMMONS MD Ot Z12.31 ENCNTR SCREEN MAMMOGRAM FOR MALIGNANT NE 01/04/2018 BARBARA PANTOJA Ot R91.1 SOLITARY PULMONARY NODULE 01/14/2018 SEAN PAN DO Ot Z29.8 ENCOUNTER FOR OTHER SPECIFIED PROPHYLACT 01/14/2018 SEAN PAN DO Ot Z29.8 ENCOUNTER FOR OTHER SPECIFIED PROPHYLACT 01/18/2018 SEAN PAN DO Ot 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, 01/18/2018 SEAN PAN DO Ot E78.5 HYPERLIPIDEMIA, UNSPECIFIED 01/18/2018 SEAN PAN DO Ot I10 ESSENTIAL (PRIMARY) HYPERTENSION 01/18/2018 SEAN PAN DO Ot Z11.2 ENCOUNTER FOR SCREENING FOR OTHER BACTER 01/18/2018 SEAN PAN DO Ot Z79.82 GUSSET RIPPER (CURRENT) USE OF ASPIRIN 01/18/2018 KATHE PAN DOIC Krystian Ot Z79.899 OTHER SENIOR CARE (CURRENT) DRUG THERAPY 01/19/2018 SEAN PAN DO Ot 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, 01/19/2018 KATHE PAN DOIC B Ot E78.5 HYPERLIPIDEMIA, UNSPECIFIED 01/19/2018 KATHE PAN DOIC Krystian Ot I10 ESSENTIAL (PRIMARY) HYPERTENSION 01/19/2018 KATHE PAN DOIC Krystian Ot Z11.2 ENCOUNTER FOR SCREENING FOR OTHER BACTER 01/19/2018 KATHE PAN DOIC Krystian Ot Z79.82 GUSSET RIPPER (CURRENT) USE OF ASPIRIN 01/19/2018 SEAN PAN DO Ot Z79.899 OTHER SENIOR CARE (CURRENT) DRUG THERAPY 01/21/2018 BARBARA PANTOJA L Ot R05 COUGH 01/25/2018 BARBARA PANTOJA Ot R91.1 SOLITARY PULMONARY NODULE 01/26/2018 BARBARA PANTOJA Ot R05 COUGH 01/28/2018 BARBARA PANTOJA Ot R91.1 SOLITARY PULMONARY NODULE 03/18/2018 EZRA SIMMOSN MD Ot M81.0 AGE-RELATED OSTEOPOROSIS W/O CURRENT PAT 03/18/2018 EZRA SIMMONS MD Ot Z12.31 ENCNTR SCREEN MAMMOGRAM FOR MALIGNANT NE 03/19/2018 EZRA SIMMONS MD Ot M81.0 AGE-RELATED OSTEOPOROSIS W/O CURRENT PAT 03/19/2018 EZRA SIMMONS MD Ot Z12.31 ENCNTR SCREEN MAMMOGRAM FOR MALIGNANT NE 08/23/2018 EZRA SIMMONS MD Ot V76.12 OTH SCREEN MAMMO-MALIGN NEOPLASM OF DONTRELL 08/23/2018 AVA FATIMA MD Ot 268.9 VITAMIN D DEFICIENCY NOS 08/23/2018 AVA FATIMA MD Ot 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 08/23/2018 AVA FATIMA MD Ot 585.9 CHRONIC KIDNEY DISEASE, UNSPECIFIED 08/23/2018 AVA FATIMA MD Ot 268.9 VITAMIN D DEFICIENCY NOS 08/23/2018 AVA FATIMA MD Ot 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 08/23/2018 EZRA SIMMONS MD Ot 401.9 HYPERTENSION NOS 08/23/2018 IRIS RAMESH, EZRA Gusman Ot 447.6 ARTERITIS NOS 08/23/2018 EZRA SIMMONS MD Ot V58.69 OTH MED,LT,CURRENT USE 08/23/2018 KUSHAL RAMESH, AVA Mahan Ot 268.9 VITAMIN D DEFICIENCY NOS 08/23/2018 KUSHAL RAMESH, AVA Mahan Ot 585.9 CHRONIC KIDNEY DISEASE, UNSPECIFIED 08/23/2018 KUSHAL RAMESH, AVA Mahan Ot 255.9 ADRENAL DISORDER N0S 08/23/2018 KUSHAL RAMESH, AVA Mahan Ot 268.9 VITAMIN D DEFICIENCY NOS 08/23/2018 KUSHAL RAMESH, AVA Mahan Ot 585.9 CHRONIC KIDNEY DISEASE, UNSPECIFIED 08/23/2018 KUSHAL RAMESH, AVA Mahan Ot 791.0 PROTEINURIA 08/23/2018 EZRA SIMMONS MD Ot V76.12 OTH SCREEN MAMMO-MALIGN NEOPLASM OF DONTRELL 08/23/2018 AVA FATIMA MD Ot 447.6 ARTERITIS NOS 08/23/2018 KUSHAL RAMESH, AVA Mahan Ot I77.6 ARTERITIS, UNSPECIFIED 08/23/2018 EZRA SIMMONS MD Ot Z12.31 ENCNTR SCREEN MAMMOGRAM FOR MALIGNANT NE 08/23/2018 AVA FATIMA MD Ot I77.6 ARTERITIS, UNSPECIFIED 08/23/2018 AVA FATIMA MD Ot N18.9 CHRONIC KIDNEY DISEASE, UNSPECIFIED 08/23/2018 EZRA SIMMONS MD Ot Z12.31 ENCNTR SCREEN MAMMOGRAM FOR MALIGNANT NE 08/23/2018 ELIZABETH KIM APRN Ot R05 COUGH 08/23/2018 EZRA SIMMONS MD Ot M81.0 AGE-RELATED OSTEOPOROSIS W/O CURRENT PAT 08/23/2018 EZRA SIMMONS MD Ot Z12.31 ENCNTR SCREEN MAMMOGRAM FOR MALIGNANT NE 08/23/2018 BARBARA PANTOJA Ot R91.1 SOLITARY PULMONARY NODULE 08/23/2018 BARBARA PANTOJA Ot R05 COUGH 08/23/2018 EZRA SIMMONS MD Ot Z12.31 ENCNTR SCREEN MAMMOGRAM FOR MALIGNANT NE 08/24/2018 EZRA SIMMONS MD Ot Z12.31 ENCNTR SCREEN MAMMOGRAM FOR MALIGNANT NE Procedures There is no data. Results Test Result Range Complete blood count (CBC) with automated white blood cell (WBC) differential - 04/03/16 12:00 Blood leukocytes automated count (number/volume) 7.1 10*3/uL 4.3-11.0 Blood erythrocytes automated count (number/volume) 4.45 10*6/uL 4.35-5.85 Venous blood hemoglobin measurement (mass/volume) 13.5 g/dL 11.5-16.0 Blood hematocrit (volume fraction) 40 % 35-52 Automated erythrocyte mean corpuscular volume 91 [foz_us] 80-99 Automated erythrocyte mean corpuscular hemoglobin (mass per erythrocyte) 30 pg 25-34 Automated erythrocyte mean corpuscular hemoglobin concentration measurement ( mass/volume) 33 g/dL 32-36 Automated erythrocyte distribution width ratio 14.6 % 10.0-14.5 Automated blood platelet count (count/volume) 226 10*3/uL 130-400 Automated blood platelet mean volume measurement 9.9 [foz_us] 7.4-10.4 Automated blood neutrophils/100 leukocytes 78 % 42-75 Automated blood lymphocytes/100 leukocytes 12 % 12-44 Blood monocytes/100 leukocytes 8 % 0-12 Automated blood eosinophils/100 leukocytes 1 % 0-10 Automated blood basophils/100 leukocytes 1 % 0-10 Blood neutrophils automated count (number/volume) 5.5 10*3 1.8-7.8 Blood lymphocytes automated count (number/volume) 0.9 10*3 1.0-4.0 Blood monocytes automated count (number/volume) 0.6 10*3 0.0-1.0 Automated eosinophil count 0.1 10*3/uL 0.0-0.3 Automated blood basophil count (count/volume) 0.1 10*3/uL 0.0-0.1 Comprehensive metabolic panel - 04/03/16 12:00 Serum or plasma sodium measurement (moles/volume) 135 mmol/L 135-145 Serum or plasma potassium measurement (moles/volume) 4.2 mmol/L 3.6-5.0 Serum or plasma chloride measurement (moles/volume) 103 mmol/L 98-107 Carbon dioxide 20 mmol/L 21-32 Serum or plasma anion gap determination (moles/volume) 12 mmol/L 5-14 Serum or plasma urea nitrogen measurement (mass/volume) 20 mg/dL 7-18 Serum or plasma creatinine measurement (mass/volume) 0.80 mg/dL 0.60-1.30 Serum or plasma urea nitrogen/creatinine mass ratio 25 NRG Serum or plasma creatinine measurement with calculation of estimated glomerular filtration rate > NRG Serum or plasma glucose measurement (mass/volume) 108 mg/dL 70-105 Serum or plasma calcium measurement (mass/volume) 9.5 mg/dL 8.5-10.1 Serum or plasma total bilirubin measurement (mass/volume) 0.7 mg/dL 0.1-1.0 Serum or plasma alkaline phosphatase measurement (enzymatic activity/volume) 55 U/L 40-136 Serum or plasma aspartate aminotransferase measurement (enzymatic activity/ volume) 25 U/L 5-34 Serum or plasma alanine aminotransferase measurement (enzymatic activity/volume ) 16 U/L 0-55 Serum or plasma protein measurement (mass/volume) 7.1 g/dL 6.4-8.2 Serum or plasma albumin measurement (mass/volume) 4.2 g/dL 3.2-4.5 Complete urinalysis with reflex to culture - 04/03/16 13:50 Urine color determination YELLOW NRG Urine clarity determination SLIGHTLY CLOUDY NRG Urine pH measurement by test strip 8 5-9 Specific gravity of urine by test strip 1.015 1.016- 1.022 Urine protein assay by test strip, semi-quantitative NEGATIVE NEGATIVE Urine glucose detection by automated test strip NEGATIVE NEGATIVE Erythrocytes detection in urine sediment by light microscopy NEGATIVE NEGATIVE Urine ketones detection by automated test strip 4+ NEGATIVE Urine nitrite detection by test strip NEGATIVE NEGATIVE Urine total bilirubin detection by test strip NEGATIVE NEGATIVE Urine urobilinogen measurement by automated test strip (mass/volume) NORMAL NORMAL Urine leukocyte esterase detection by dipstick 1+ NEGATIVE Automated urine sediment erythrocyte count by microscopy (number/high power field) NONE NRG Automated urine sediment leukocyte count by microscopy (number/high power field ) [HPF] NRG Bacteria detection in urine sediment by light microscopy MODERATE NRG Squamous epithelial cells detection in urine sediment by light microscopy RARE NRG Crystals detection in urine sediment by light microscopy NONE NRG Casts detection in urine sediment by light microscopy NONE NRG Mucus detection in urine sediment by light microscopy NEGATIVE NRG Complete urinalysis with reflex to culture YES NRG Amorphous sediment detection in urine sediment by light microscopy MOD MARLENY PHOSPHATE NRG Bacterial urine culture - 04/03/16 13:50 URINE CULTURE RESULTS <10,000/ML [facility] Complete blood count (CBC) with automated white blood cell (WBC) differential - 05/12/16 09:07 Blood leukocytes automated count (number/volume) 6.6 10*3/uL 4.3-11.0 Blood erythrocytes automated count (number/volume) 4.27 10*6/uL 4.35-5.85 Venous blood hemoglobin measurement (mass/volume) 13.1 g/dL 11.5-16.0 Blood hematocrit (volume fraction) 39 % 35-52 Automated erythrocyte mean corpuscular volume 92 [foz_us] 80-99 Automated erythrocyte mean corpuscular hemoglobin (mass per erythrocyte) 31 pg 25-34 Automated erythrocyte mean corpuscular hemoglobin concentration measurement ( mass/volume) 34 g/dL 32-36 Automated erythrocyte distribution width ratio 14.1 % 10.0-14.5 Automated blood platelet count (count/volume) 231 10*3/uL 130-400 Automated blood platelet mean volume measurement 9.2 [foz_us] 7.4-10.4 Automated blood neutrophils/100 leukocytes 73 % 42-75 Automated blood lymphocytes/100 leukocytes 16 % 12-44 Blood monocytes/100 leukocytes 8 % 0-12 Automated blood eosinophils/100 leukocytes 2 % 0-10 Automated blood basophils/100 leukocytes 1 % 0-10 Blood neutrophils automated count (number/volume) 4.9 10*3 1.8-7.8 Blood lymphocytes automated count (number/volume) 1.1 10*3 1.0-4.0 Blood monocytes automated count (number/volume) 0.6 10*3 0.0-1.0 Automated eosinophil count 0.1 10*3/uL 0.0-0.3 Automated blood basophil count (count/volume) 0.1 10*3/uL 0.0-0.1 Liver function panel (serum or plasma alk phos, alb, total and direct bili, total protein, ALT, AST) - 05/12/16 09:07 Serum or plasma total bilirubin measurement (mass/volume) 0.6 mg/dL 0.1-1.0 Serum or plasma alkaline phosphatase measurement (enzymatic activity/volume) 58 U/L 40-136 Serum or plasma aspartate aminotransferase measurement (enzymatic activity/ volume) 23 U/L 5-34 Serum or plasma alanine aminotransferase measurement (enzymatic activity/volume ) 19 U/L 0-55 Serum or plasma protein measurement (mass/volume) 6.8 g/dL 6.4-8.2 Serum or plasma albumin measurement (mass/volume) 4.0 g/dL 3.2-4.5 Bilirubin direct 0.2 mg/dL 0.0-0.3 Serum or plasma indirect bilirubin measurement (mass/volume) 0.4 mg/ dL NRG Whole blood basic metabolic panel - 05/12/16 09:07 Serum or plasma sodium measurement (moles/volume) 136 mmol/L 135-145 Serum or plasma potassium measurement (moles/volume) 4.4 mmol/L 3.6-5.0 Serum or plasma chloride measurement (moles/volume) 104 mmol/L 98-107 Carbon dioxide 25 mmol/L 21-32 Serum or plasma anion gap determination (moles/volume) 7 mmol/L 5-14 Serum or plasma urea nitrogen measurement (mass/volume) 16 mg/dL 7-18 Serum or plasma creatinine measurement (mass/volume) 0.78 mg/dL 0.60-1.30 Serum or plasma urea nitrogen/creatinine mass ratio 21 NRG Serum or plasma creatinine measurement with calculation of estimated glomerular filtration rate > NRG Serum or plasma glucose measurement (mass/volume) 94 mg/dL 70-105 Serum or plasma calcium measurement (mass/volume) 9.1 mg/dL 8.5-10.1 Complete urinalysis with reflex to culture - 05/12/16 09:15 Urine color determination YELLOW NRG Urine clarity determination CLEAR NRG Urine pH measurement by test strip 6 5-9 Specific gravity of urine by test strip 1.015 1.016- 1.022 Urine protein assay by test strip, semi-quantitative NEGATIVE NEGATIVE Urine glucose detection by automated test strip NEGATIVE NEGATIVE Erythrocytes detection in urine sediment by light microscopy NEGATIVE NEGATIVE Urine ketones detection by automated test strip NEGATIVE NEGATIVE Urine nitrite detection by test strip NEGATIVE NEGATIVE Urine total bilirubin detection by test strip NEGATIVE NEGATIVE Urine urobilinogen measurement by automated test strip (mass/volume) NORMAL NORMAL Urine leukocyte esterase detection by dipstick 1+ NEGATIVE Automated urine sediment erythrocyte count by microscopy (number/high power field) RARE NRG Automated urine sediment leukocyte count by microscopy (number/high power field ) [HPF] NRG Bacteria detection in urine sediment by light microscopy TRACE NRG Squamous epithelial cells detection in urine sediment by light microscopy 0-2 NRG Crystals detection in urine sediment by light microscopy NONE NRG Casts detection in urine sediment by light microscopy NONE NRG Mucus detection in urine sediment by light microscopy NEGATIVE NRG Complete urinalysis with reflex to culture NO NRG Urine microalbumin measurement by test strip (mass/volume) - 05/12/16 09:15 Urine creatinine measurement (mass/volume) 57 % NRG Microalbumin [mass/volume] in urine 4.4 % 0.0-20.0 Microalbumin/creatinine [ratio] in urine 7.7 mg/g{Cre} 0.0-30.0 Complete urinalysis with reflex to culture - 06/06/16 08:20 Urine color determination YELLOW NRG Urine clarity determination CLEAR NRG Urine pH measurement by test strip 7 5-9 Specific gravity of urine by test strip 1.010 1.016- 1.022 Urine protein assay by test strip, semi-quantitative NEGATIVE NEGATIVE Urine glucose detection by automated test strip NEGATIVE NEGATIVE Erythrocytes detection in urine sediment by light microscopy NEGATIVE NEGATIVE Urine ketones detection by automated test strip NEGATIVE NEGATIVE Urine nitrite detection by test strip NEGATIVE NEGATIVE Urine total bilirubin detection by test strip NEGATIVE NEGATIVE Urine urobilinogen measurement by automated test strip (mass/volume) NORMAL NORMAL Urine leukocyte esterase detection by dipstick 2+ NEGATIVE Automated urine sediment erythrocyte count by microscopy (number/high power field) RARE NRG Automated urine sediment leukocyte count by microscopy (number/high power field ) [HPF] NRG Bacteria detection in urine sediment by light microscopy TRACE NRG Squamous epithelial cells detection in urine sediment by light microscopy 2-5 NRG Crystals detection in urine sediment by light microscopy NONE NRG Casts detection in urine sediment by light microscopy NONE NRG Mucus detection in urine sediment by light microscopy NEGATIVE NRG Complete urinalysis with reflex to culture YES NRG Bacterial urine culture - 06/06/16 08:20 Bacterial urine culture [id number] NRG COLONY COUNT <10,000 NRG FTX;REPORTABLE (3 DIFFERENT COLONY TYPES, THEREFORE NRG FREE TEXT ENTRY 2 PROBABLY 3 DIFFERENT SPECIES OF NRG FREE TEXT ENTRY 3 CORYNEBACTERIUM) NRG Urine microalbumin measurement by test strip (mass/volume) - 06/06/16 08:20 Urine creatinine measurement (mass/volume) 80 % NRG Microalbumin [mass/volume] in urine 5.4 % 0.0-20.0 Microalbumin/creatinine [ratio] in urine 6.8 mg/g{Cre} 0.0-30.0 Methicillin resistant Staphylococcus aureus (MRSA) screening culture - 10:00 Methicillin resistant Staphylococcus aureus (MRSA) screening culture NEG NRG Encounters ACCT No. Visit Date/Time Discharge Status Pt. Type Provider Facility Loc./Unit Complaint [id number] 08/23/2018 10:42:00 08/23/2018 23:59:59 CLS Outpatient EZRA SIMMONS MD [facility] RAD SCREENING [id number] 02/18/2018 10:07:00 02/18/2018 23:59:59 CLS Preadmit EZRA SIMMONS MD [facility] RAD OSTEOPOROSIS [id number] 01/18/2018 09:35:00 01/18/2018 14:15:00 DIS Outpatient SEAN PAN DO [facility] SDC MELANOMA RIGHT LOWER LEG [id number] 01/14/2018 05:34:00 01/14/2018 10:44:00 DIS Outpatient SEAN PAN DO [facility] PREOP WIDE EXCISION MELANOMA RT. LEG [id number] 01/01/2018 13:57:00 01/01/2018 23:59:59 CLS Outpatient BARBARA PANTOJA [facility] RAD COUGH,ABNORMAL CXR [id number] 01/01/2018 10:06:00 01/01/2018 23:59:59 CLS Outpatient BARBARA PANTOJA [facility] RAD COUGH [id number] 07/09/2017 08:35:00 07/09/2017 23:59:59 CLS Outpatient EZRA SIMMONS MD [facility] RAD SCREENING,OSTEOPOROSIS [id number] 01/13/2017 14:48:00 01/13/2017 23:59:59 CLS Outpatient ELIZABETH KIM APRN [facility] RAD COUGH FOR 1 MONTH [id number] 06/24/2016 10:27:00 06/24/2016 23:59:59 CLS Outpatient EZRA SIMMONS MD [facility] RAD SCREENING [id number] 06/06/2016 08:13:00 06/06/2016 23:59:59 CLS Outpatient AVA FATIMA MD [facility] LAB CHRONIC KIDNEY DISEASE [id number] 05/12/2016 08:47:00 05/12/2016 23:59:59 CLS Outpatient AVA FATIMA MD [facility] LAB ANCA-ASSOCIATED VASCULITIS [id number] 04/03/2016 14:50:00 04/04/2016 14:49:00 DIS Inpatient ANNA LEA DO [facility] 4TH VERTIGO UTI [id number] 06/12/2015 10:49:00 06/12/2015 23:59:59 CLS Outpatient EZRA SIMMONS MD [facility] RAD ROUTINE SCREENING [id number] 05/11/2015 10:19:00 05/11/2015 23:59:59 CLS Outpatient AVA FATIMA MD [facility] LAB VASCULITIS, CKD [id number] 11/15/2014 08:47:00 11/15/2014 23:59:59 CLS Outpatient AVA FATIMA MD [facility] LAB DISORDER OF THE ARTERIES , [id number] 05/31/2014 07:23:00 05/31/2014 23:59:59 CLS Outpatient EZRA SIMMONS MD [facility] RAD SCREENING [id number] 04/25/2014 08:57:00 04/25/2014 23:59:59 CLS Outpatient AVA FATIMA MD [facility] LAB CKD. VIT D DEF, DYSFUNTION OF URINARY TRACT [id number] 11/29/2013 09:14:00 11/29/2013 23:59:59 CLS Outpatient AVA FATIMA MD [facility] LAB UNSPECIFIED VIT D DEFICIENCY, CHRONIC KIDEY DISEAS [id number] 09/01/2013 09:19:00 09/01/2013 23:59:59 CLS Outpatient EZRA SIMMONS MD [facility] LAB HTN,ARTERITIS,GUSSET RIPPER MED USE [id number] 09/01/2013 09:14:00 09/01/2013 23:59:59 CLS Outpatient AVA FATIMA MD [facility] LAB CKD [id number] 05/30/2013 09:52:00 05/30/2013 23:59:59 CLS Outpatient EZRA SIMMONS MD [facility] RAD SCREENING [id number] 05/27/2013 08:48:00 05/27/2013 23:59:59 CLS Outpatient AVA FATIMA MD [facility] LAB CKD,VIT D DEFICINECY,ANCA -ASSOCIATED VASULITIS [id number] 02/24/2013 08:16:00 02/24/2013 23:59:59 CLS Outpatient ELIZABETH KIM APRN [facility] LAB HYPERTENSION, ARTERITIS,SENIOR CARE MED USE [id number] 11/15/2014 08:34:00 Document Registration [id number] 11/15/2014 08:34:00 Document Registration [id number] 11/15/2014 08:34:00 Document Registration [id number] 11/15/2014 08:34:00 Document Registration [id number] 11/15/2014 08:33:00 Document Registration [id number] 11/15/2014 08:33:00 Document Registration [id number] 11/15/2014 08:33:00 Document Registration [id number] 11/15/2014 08:33:00 Document Registration [id number] 11/15/2014 08:33:00 Document Registration [id number] 11/15/2014 08:33:00 Document Registration [id number] 11/15/2014 08:33:00 Document Registration [id number] 11/17/2012 09:18:00 Document Registration [id number] 07/14/2012 00:00:00 Document Registration [id number] 06/01/2012 08:56:00 Document Registration [id number] 05/24/2012 10:58:00 Document Registration [id number] 04/14/2012 08:52:00 Document Registration [id number] 12/08/2011 08:16:00 Document Registration [id number] 11/13/2011 09:06:00 Document Registration [id number] 11/13/2011 09:03:00 Document Registration [id number] 11/13/2011 08:49:00 Document Registration [id number] 09/18/2011 09:03:00 Document Registration [id number] 08/25/2011 08:51:00 Document Registration [id number] 08/06/2011 09:30:00 Document Registration [id number] 08/06/2011 08:58:00 Document Registration [id number] 06/13/2011 09:35:00 Document Registration [id number] 06/04/2011 08:40:00 Document Registration [id number] 05/07/2011 13:47:00 Document Registration [id number] 05/01/2011 13:42:00 Document Registration [id number] 04/02/2011 08:47:00 Document Registration [id number] 11/28/2010 08:41:00 Document Registration [id number] 10/23/2010 08:37:00 Document Registration [id number] 10/01/2010 09:05:00 Document Registration [id number] 09/16/2010 08:51:00 Document Registration [id number] 09/09/2010 08:11:00 Document Registration [id number] 07/31/2010 08:49:00 Document Registration [id number] 05/01/2010 00:00:00 Document Registration [id number] 04/24/2010 09:07:00 Document Registration [id number] 04/04/2010 10:05:00 Document Registration [id number] 01/30/2010 08:45:00 Document Registration [id number] 01/30/2010 00:00:00 Document Registration [id number] 06/27/2009 09:07:00 Document Registration [id number] 05/30/2009 08:44:00 Document Registration [id number] 05/30/2009 08:36:00 Document Registration [id number] 02/15/2008 15:01:00 Document Registration
[2018-08-28 18:02] LABS: BASOPHILS % (AUTO) 0 % (0-10); EOSINOPHILS % (AUTO) 0 % (0-10); HEMATOCRIT 37 % (35-52); HEMOGLOBIN 12.4 G/DL (11.5-16.0); LYMPHOCYTES # (AUTO) 0.6 X 10^3 (1.0-4.0); LYMPHOCYTES % (AUTO) 5 % (12-44); MEAN CORPUSCULAR HEMOGLOBIN 30 PG (25-34); MEAN CORPUSCULAR HGB CONC 33 G/DL (32-36); MEAN CORPUSCULAR VOLUME 91 FL (80-99); MEAN PLATELET VOLUME 9.5 FL (7.4-10.4); MONOCYTES # (AUTO) 1.2 X 10^3 (0.0-1.0); MONOCYTES % (AUTO) 9 % (0-12); NEUTROPHILS # (AUTO) 11.1 X 10^3 (1.8-7.8); NEUTROPHILS % (AUTO) 85 % (42-75); PLATELET COUNT 234 10^3/uL (130-400); RED CELL DISTRIBUTION WIDTH 13.8 % (10.0-14.5)
[2018-08-28] MEDS ORDERED: cefTRIAXone FOR IV USE 1,000 MG in NS (IVPB) 50 ML IV ONE (18:15)
[2018-08-28 18:17] LABS: ALANINE AMINOTRANSFERASE 59 U/L (0-55); ALKALINE PHOSPHATASE 240 U/L (40-136); BILIRUBIN,TOTAL 0.9 MG/DL (0.1-1.0); BUN/CREATININE RATIO 19; CALCIUM 9.4 MG/DL (8.5-10.1); CARBON DIOXIDE 20 MMOL/L (21-32); CHLORIDE 95 MMOL/L (98-107); CREATININE SERUM 0.83 MG/DL (0.60-1.30); GFR ESTIMATED > 60; GLUCOSE 117 MG/DL (70-105); POTASSIUM 4.5 MMOL/L (3.6-5.0); SODIUM 126 MMOL/L (135-145); TOTAL PROTEIN 7.7 GM/DL (6.4-8.2)
[2018-08-28 18:19] LABS: BAND NEUTROPHILS 0 %; BASOPHILS % (MANUAL) 0 %; EOSINOPHILS % (MANUAL) 0 %; LYMPHOCYTES % (MANUAL) 4 %; MONOCYTES % (MANUAL) 6 %; NEUTROPHILS % (MANUAL) 90 %; RBC MORPH NORMAL
[2018-08-28] MEDS: RX-ACETAMINOPHEN/CODEINE TAB PPK #4 PO SCH ×2 (18:24→21:54)
[2018-08-28 18:26] LABS: ERYTHROCYTE SEDIMENTATION RATE 99 MM/HR (0-30)
--- NOTE | 2018-08-28 18:28 | Diagnostic Imaging Report ---
INDICATION: Cough, rib pain, history of scarred lungs. EXAMINATION: Two-view chest, 08/28/2018. COMPARISON: 01/01/2018. FINDINGS: The heart is stable. The pulmonary vasculature is congested. There may be an infiltrate developing at the right lung base. Atelectasis versus infiltrate in the left lung base also noted. No effusions. No pneumothorax. The remaining lungs demonstrate coarsened markings consistent with chronic disease. IMPRESSION: 1. Possible developing bibasilar infiltrates. Followup recommended to assure resolution. 2. Pulmonary vascular congestion. Dictated by: Dictated on workstation # [id number]
--- NOTE | 2018-08-28 19:50 | NUR ---
RASHEL GARCIA admitted to room 414-1, with an admitting diagnosis of PNA, on 08/28/18 from ED via [facility], accompanied by STAFF.RASHEL GARCIA introduced to surroundings, call light, bed controls, phone, TV, temperature control, lights, meal times, smoking policy, visitor policy, side rail policy, bathrooms and showers. Patient Rights given to patient in the handbook. RASHEL GARCIA verbalizes understanding that [facility] is not responsible for the loss or damage to any personal effects or valuables that are kept in the patients posession during their hospitalization.
[2018-08-28] MEDS ORDERED: NS IV 1000 ML 1,000 ML ONE (19:51)
[2018-08-28] MEDS ORDERED: IBUPROFEN 600 MG (MOTRIN) TAB PO PRN (20:00)
[2018-08-28 20:24] VITALS: BP 119/73
[2018-08-28] MEDS: NS IV 1000 ML 1,000 ML IV SCH (20:57)
[2018-08-28] MEDS ORDERED: RT-ALBUTEROL SULF 2.5 MG/3 ML PRE-MIX VIAL INH PRN (21:15)
[2018-08-28 21:43] VITALS: BP 89/50
[2018-08-28 22:30] VITALS: BP 85/53
--- NOTE | 2018-08-28 23:30 | NUR ---
PT C/O CONTINUED COUGH. DR. GOODRICH CALLED NEW ORDER RECEIVED. DR. GOODRICH ALSO INFORMED OF B/P 80/50 AND PT IS ASYMPTOMATIC. NO NEW ORDERS FOR B/P.
[2018-08-28] MEDS: guaiFENesin/DM (ROBITUSSIN DM) 10 ML UDC PO PRN (23:51)
[2018-08-29 00:07] VITALS: BP 100/50
[2018-08-29] MEDS: APAP 300 MG/CODEINE 30 MG (TYLENOL #3) TAB PO PRN ×4 (00:17→20:08)
[2018-08-29] MEDS: guaiFENesin/DM (ROBITUSSIN DM) 10 ML UDC PO PRN ×4 (03:47→20:10)
[2018-08-29] MEDS: NS IV 1000 ML 1,000 ML IV SCH ×2 (03:49→15:38)
[2018-08-29 04:00] VITALS: BP 93/51
[2018-08-29 06:46] LABS: BASOPHILS % (AUTO) 0 % (0-10); EOSINOPHILS % (AUTO) 0 % (0-10); HEMATOCRIT 30 % (35-52); HEMOGLOBIN 10.2 G/DL (11.5-16.0); LYMPHOCYTES # (AUTO) 0.4 X 10^3 (1.0-4.0); LYMPHOCYTES % (AUTO) 4 % (12-44); MEAN CORPUSCULAR HEMOGLOBIN 31 PG (25-34); MEAN CORPUSCULAR HGB CONC 34 G/DL (32-36); MEAN CORPUSCULAR VOLUME 92 FL (80-99); MEAN PLATELET VOLUME 9.5 FL (7.4-10.4); MONOCYTES # (AUTO) 1.2 X 10^3 (0.0-1.0); MONOCYTES % (AUTO) 11 % (0-12); NEUTROPHILS # (AUTO) 9.3 X 10^3 (1.8-7.8); NEUTROPHILS % (AUTO) 85 % (42-75); PLATELET COUNT 195 10^3/uL (130-400); RED CELL DISTRIBUTION WIDTH 14.2 % (10.0-14.5); WHITE BLOOD COUNT 10.9 10^3/uL (4.3-11.0)
[2018-08-29 07:12] LABS: ALANINE AMINOTRANSFERASE 41 U/L (0-55); ALBUMIN 3.1 GM/DL (3.2-4.5); ALKALINE PHOSPHATASE 182 U/L (40-136); BILIRUBIN,TOTAL 0.7 MG/DL (0.1-1.0); BUN/CREATININE RATIO 19; CARBON DIOXIDE 16 MMOL/L (21-32); CHLORIDE 102 MMOL/L (98-107); GFR ESTIMATED > 60; GLUCOSE 114 MG/DL (70-105); POTASSIUM 4.2 MMOL/L (3.6-5.0); SODIUM 129 MMOL/L (135-145); TOTAL PROTEIN 5.9 GM/DL (6.4-8.2)
[2018-08-29 08:21] VITALS: BP 96/53
[2018-08-29 11:41] VITALS: BP 94/52
--- NOTE | 2018-08-29 13:09 | History & Physical-Hospitalist ---
History of Present Illness HPI/Chief Complaint Pt is an 88yoCF with a PMH of vasculitis who presented to the ER with CC weakness and cough. She states her symptoms started last week with cough and nasal congestion. She continued to worsen throughout the week and her daughter from [place] drove up to stay with her. Her daughter thought that she was ashen and not acting right so decided to bring her to the ER for evaluation. She states she has not had a fever but has been coughing up clear sputum for 4-5 days. Last night she developed yellow sputum with her cough and some left breast pain. She states she is feeling better this morning but her appetite is still down. She otherwise has no complaints. Source: patient, family Date Seen 08/29/18 Time Seen by a Provider: 13:15 Attending Physician Oksana Rendon MD PCP Ezra Oro MD Referring Physician Date of Admission Aug 28, 2018 at 18:42 Home Medications & Allergies Home Medications Reviewed patient Home Medication Reconciliation performed by pharmacy medication reconciliations automotive refinish technician and/or nursing. Patients Allergies have been reviewed. Allergies Allergies Coded Allergies Penicillins (Verified Allergy, Unknown, 02/16/08) Sulfa (Sulfonamide Antibiotics) (Verified Allergy, Unknown, 02/16/08) erythromycin base (Verified Allergy, Unknown, 02/16/08) Past Mbplhao-Jbjjba-Nmkkwa Hx Past Med/Social Hx: Reviewed Nursing Past Med/Soc Hx Patient Social History Marrital Status: Employed/Student: retired Alcohol Use: Occasionally Uses Recreational Drug Use: No Smoking Status: Never a Smoker Physical Abuse Screen: No Sexual Abuse: No Recent Foreign Travel: No Contact w/other who traveled: No Recent Hopitalizations: No Recent Infectious Disease Expo: No Immunizations Up To Date Tetanus Booster (TDap): Unknown Date of Pneumonia Vaccine: Apr 03, 2008 Date of Influenza Vaccine: Apr 27, 2018 Seasonal Allergies Seasonal Allergies: Yes Past Medical History Currently Using CPAP: No Currently Using BIPAP: No Cardiac: High Cholesterol, Hypertension Reproductive: No Sexually Transmitted Disease: No HIV/AIDS: No Gastrointestinal: Chronic Constipation Musculoskeletal: Arthritis HEENT: Cataract Loss of Vision: Denies Hearing Impairment: Denies Cancer: Melanoma Psychosocial: Anxiety History of Blood Disorders: No Adverse Reaction to Blood Ron: No Family History Reviewed Nursing Family Hx Neoplasm 19 MOTHER Cancer Review of Systems Constitutional: No chills, No fever; malaise EENTM: nose congestion, throat pain Respiratory: cough, phlegm; No short of breath Cardiovascular: No chest pain, No palpitations Gastrointestinal: No abdominal pain, No nausea, No vomiting All Other Systems Reviewed Negative Unless Noted: Yes (Negative excepted noted.) Physical Exam Physical Exam Vital Signs Vital Signs - First Documented 08/28/18 08/28/18 18:06 20:24 Temp 97.9 Pulse 110 Resp 20 B/P (MAP) 119/73 (88) Pulse Ox 94 O2 Delivery Room Air FiO2 21 Capillary Refill : Less Than 3 Seconds Height, Weight, BMI Height: 5'3.00" Weight: 125lbs. 8.0oz. 56.133948ul; 22.2 BMI Method:Stated General Appearance: No Apparent Distress, WD/WN HEENT: PERRL/EOMI, Moist Mucous Membranes; No Scleral Icterus (L), No Scleral Icterus (R) Neck: Non Tender, Supple Respiratory: Lungs Clear, No Respiratory Distress Cardiovascular: Regular Rate, Rhythm, No Murmur Gastrointestinal: Normal Bowel Sounds, Non Tender, Soft Extremity: Normal Capillary Refill, No Calf Tenderness, No Pedal Edema Neurologic/Psychiatric: Alert, Oriented x3, No Motor/Sensory Deficits, Normal Mood/Affect; No Aphasia, No Facial Droop Skin: Normal Color, Warm/Dry Results Results/Procedures Labs Laboratory Tests 08/28/18 17:53 08/29/18 06:26 Patient resulted labs reviewed. Imaging: Reviewed Imaging Report Assessment/Plan Admission Diagnosis CAP Admission Status: Observation Diagnosis/Problems Diagnosis/Problems (1) Right lower lobe pneumonia Status: Acute Assessment & Plan: met sepsis criteria on arrival, now resolved (tachycardia and leukocytosis) Lactic normal Continue on Rocephin (allergy to erythromycin) Await cultures Maintaining on room air Qualifiers: Pneumonia type: due to unspecified organism Qualified Codes: J18.1 - Lobar pneumonia, unspecified organism (2) Hyponatremia Status: Acute Assessment & Plan: Improved today Continue IVF as likely due to hypovolemia Check in AM (3) Elevated LFTs Status: Acute Assessment & Plan: Improving Likely due to dehydration Clinical Quality Measures DVT/VTE Risk/Contraindication: Risk Factor Score Per Nursin RFS Level Per Nursing on Admit: 3=High Copy Copies To 1: EZRA ORO MD, KATELYN M MD Aug 29, 2018 13:09
[2018-08-29 15:12] LABS: BILIRUBIN,URINE NEGATIVE (NEGATIVE); CLARITY,URINE CLEAR; COLOR,URINE YELLOW; GLUCOSE, URINE (UA) NEGATIVE (NEGATIVE); KETONES,URINE NEGATIVE (NEGATIVE); LEUKOCYTE ESTERASE ,URINE 1+ (NEGATIVE); NITRITE,URINE NEGATIVE (NEGATIVE); PH,URINE 5 (5-9); PROTEIN,URINE 2+ (NEGATIVE); UROBILINOGEN,URINE NORMAL (NORMAL)
[2018-08-29 15:18] LABS: BACTERIA,URINE NEGATIVE /HPF; RBC,URINE 0-2 /HPF; WBC,URINE RARE /HPF
[2018-08-29 16:40] VITALS: BP 98/64
[2018-08-29] MEDS: cefTRIAXone 1 GM/NS 50 ML IVPB IV SCH ×2 (17:46)
[2018-08-29] MEDS: LACTOBACILLUS ACIDOPHILUS (PROBIOTIC) CAPSULE PO SCH (17:47)
[2018-08-29 20:42] VITALS: BP 104/56
[2018-08-30] VITALS: BP 103/52
[2018-08-30] MEDS: NS IV 1000 ML 1,000 ML IV SCH ×2 (02:11→11:43)
[2018-08-30] MEDS: APAP 300 MG/CODEINE 30 MG (TYLENOL #3) TAB PO PRN ×3 (02:12→19:58)
[2018-08-30 04:00] VITALS: BP 98/54
[2018-08-30 06:01] LABS: BASOPHILS % (AUTO) 0 % (0-10); EOSINOPHILS # (AUTO) 0.1 10^3/uL (0.0-0.3); EOSINOPHILS % (AUTO) 1 % (0-10); HEMATOCRIT 32 % (35-52); HEMOGLOBIN 10.6 G/DL (11.5-16.0); LYMPHOCYTES # (AUTO) 0.5 X 10^3 (1.0-4.0); LYMPHOCYTES % (AUTO) 5 % (12-44); MEAN CORPUSCULAR HEMOGLOBIN 31 PG (25-34); MEAN CORPUSCULAR HGB CONC 33 G/DL (32-36); MEAN CORPUSCULAR VOLUME 92 FL (80-99); MEAN PLATELET VOLUME 9.7 FL (7.4-10.4); MONOCYTES # (AUTO) 1.4 X 10^3 (0.0-1.0); MONOCYTES % (AUTO) 13 % (0-12); NEUTROPHILS % (AUTO) 82 % (42-75); PLATELET COUNT 204 10^3/uL (130-400); RED CELL DISTRIBUTION WIDTH 13.9 % (10.0-14.5); WHITE BLOOD COUNT 11.1 10^3/uL (4.3-11.0)
[2018-08-30] MEDS: LACTOBACILLUS ACIDOPHILUS (PROBIOTIC) CAPSULE PO SCH ×3 (06:10→20:07)
[2018-08-30 06:22] LABS: BUN/CREATININE RATIO 9; CALCIUM 8.6 MG/DL (8.5-10.1); CARBON DIOXIDE 16 MMOL/L (21-32); CHLORIDE 106 MMOL/L (98-107); CREATININE SERUM 0.64 MG/DL (0.60-1.30); GFR ESTIMATED > 60; GLUCOSE 100 MG/DL (70-105); POTASSIUM 4.7 MMOL/L (3.6-5.0); SODIUM 132 MMOL/L (135-145)
[2018-08-30 08:00] VITALS: BP 103/68
--- NOTE | 2018-08-30 08:17 | NUR ---
Spoke to patient she stated what she took and how she took her medication. I took off they hydrocodone she stated she had a prescription in the past but no longer takes.
[2018-08-30 12:00] VITALS: BP 113/73
--- NOTE | 2018-08-30 13:29 | Diagnostic Imaging Report ---
INDICATION: Infiltrate. TECHNIQUE: Single-view chest at 1:15 pm. CORRELATION STUDY: 08/28/2018. FINDINGS: Heart size is enlarged. Vasculature appears increased from prior study and there are fullness of bilateral hilar structures appearing more prominent, particularly over the right perihilar region. Additionally, there is increasing and/or new infiltrate at both lung bases, left greater than right. There is also new infiltrate suggested about the basilar aspect of the right upper lobe. Small effusions are suspected. IMPRESSION: 1. Overall generally adverse change in the appearance of the chest. Vasculature is increased. 2. Increasing and/or new areas of infiltrate suggested about both lung bases, left greater than right, as well as along the basilar aspect of the right upper lobe. Small effusions. 3. Fullness of the hilar structures, right greater than left. This may be owing to progressive infiltrate and/or edema. Mass and/or adenopathy would be difficult to exclude. Continued followup imaging is recommended until resolution. Dictated by: Dictated on workstation # [id number]
--- NOTE | 2018-08-30 14:48 | Progress Note-Hospitalist ---
Progress Note Progress Notes/Assess & Plan Date Seen 08/30/18 Time Seen by Provider: 14:44 Assessment & Plan The patient is an 88-year-old white female known to me for more than 30 years. She reports that she began to have a little bit of a cough last Thursday symptoms progressed and by Thursday she was feeling quite ill. Her daughter Barb who lives in [place] had come up to visit her and found her to be in an unsatisfactory state of affairs brought her to the emergency room where she was evaluated and admitted. She was febrile. Her chest x-ray suggested by basilar atelectasis or infiltrates. Her white count was 13,000 and her sodium 126 all of which suggested a pulmonary process. She also is noted to have had a modest increase in her AST ALT and alkaline phosphatase. This morning she "was charted with a temperature of 101.1. She reports that she feels much better today although she continues to talk. Physical exam: Color is good. She is alert and oriented. Lungs are clear to auscultation. CV is regular without murmur. Abdomen is soft. Impression: Pneumonia/sepsis. Plan: Continue IV Rocephin until she has gone 24 hours without a fever. Repeat chest x-ray. Decrease IV fluids to 50 ML's per hour Focused Exam Lactate Level 08/28/18 18:30: Lactic Acid Level 0.68 ALEXANDRO LA MD Aug 30, 2018 14:48
--- NOTE | 2018-08-30 15:24 | NUR ---
Initial visit with pt and daughter Barb: pt is [employer]. Pt was two years ago. Barb moved to [place] from [place] a month after her father , and she shared about that time of painful loss and transition for the whole family. Both Barb and pt demonstrate lovingly mutual support. Pt has two other daughters, one in [place] and the other in [place], [place]. Pt states she hopes to be discharged soon.
[2018-08-30] MEDS: cefTRIAXone 1 GM/NS 50 ML IVPB IV SCH ×2 (21:22)
[2018-08-31] VITALS: BP 115/57
[2018-08-31] MEDS: guaiFENesin/DM (ROBITUSSIN DM) 10 ML UDC PO PRN (01:18)
[2018-08-31 04:00] VITALS: BP 125/64
[2018-08-31] MEDS: APAP 300 MG/CODEINE 30 MG (TYLENOL #3) TAB PO PRN (04:07)
[2018-08-31] MEDS: LACTOBACILLUS ACIDOPHILUS (PROBIOTIC) CAPSULE PO SCH ×2 (05:45→12:32)
[2018-08-31 07:41] VITALS: BP_DIAS 80
[2018-08-31 08:00] VITALS: BP 132/60
--- NOTE | 2018-08-31 11:20 | Progress Note-Hospitalist ---
Progress Note Progress Notes/Assess & Plan Date Seen 08/31/18 Time Seen by Provider: 11:16 Assessment & Plan The patient reports she continues to feel better by the day. She has been coughing vigorously with some sputum production. This responds to anti- tussives. The chest x-ray yesterday suggested increase in the infiltrate however this would be expected in the usual pattern of pneumonia. Her daughter is here and will be here for several days. Physical exam: Color is good. She is up and about in the room. Lungs are clear to auscultation. CV is regular without murmur. Abdomen is soft. Extremities show no pedal edema. Impression: Bibasilar pneumonia with greater infiltrate on the right. Plan: Discharge to home. See discharge sequence for medications and routines Focused Exam Lactate Level 08/28/18 18:30: Lactic Acid Level 0.68 ALEXANDRO LA MD Aug 31, 2018 11:19
[2018-08-31] MEDS ORDERED: CEFD300C3 PO (11:23)
[2018-08-31] MEDS ORDERED: ACET-789 PO (11:24)
--- NOTE | 2018-08-31 11:27 | Discharge Inst-Simple/Standard ---
Discharge Inst-Standard Patient Instructions/Follow Up Plan of Care/Instructions/FU: You have been prescribed 5 days of Cefdinir. Take all of these. Use your incentive spirometry at least 4 times a day. You may take Tylenol 3 or Robitussin, your choice, to suppress cough. Other medications as on the discharge sequence list. Plenty of liquids and be up and about at home. Activity as Tolerated: Yes Discharge Diet: No Restrictions Return to The Hospital For: Fever chills or increasing shortness of breath. ALEXANDRO LA MD Aug 31, 2018 11:27
[2018-08-31 13:40] VITALS: BP 132/60
[2018-08-31] MEDS ORDERED: cefTRIAXone FOR IV USE 1,000 MG in WATER (STERILE) FOR INJECTION 10 ML IV SCH (18:00)
== END 2018-08-31 13:40 | disposition home or self-care (01) | DRG 871 ==
LOC: EDUNIT# 17:32 → ER 17:33 → 4TH 18:42 → UNDOADMOB 18:42 → 4TH 19:50 → OBSVTOIN 08-29 17:18 → INTOOBSV 08-29 17:18 → UNDODISIN 08-31 13:40
PROVIDERS: ADMIT Family Medicine; ATTEND Family Medicine
DX: A41.9 Sepsis, unspecified organism (principal); J18.1 Lobar pneumonia, unspecified organism; E86.1 Hypovolemia; E86.0 Dehydration; E87.1 Hypo-osmolality and hyponatremia; J30.2 Other seasonal allergic rhinitis; I10 Essential (primary) hypertension; E78.00 Pure hypercholesterolemia, unspecified; K59.09 Other constipation; M19.91 Primary osteoarthritis, unspecified site; F41.9 Anxiety disorder, unspecified; Z85.820 Personal history of malignant melanoma of skin
CPT/HCPCS: 36415; 71045; 71046; 80048; 80053; 81000; 83605; 85007; 85025; 85027; 85652; 86141; 87040; 87804; 94640; 94664; 96361; 96365; G0378

== ENCOUNTER 2018-09-02 15:43 | Emergency (ER) | payer MEDICARE ==
[~2018-09-02] VITALS: Ht 160 cm; Wt 55.8 kg
[~2018-09-02 15:43] MED LIST changes: +ACET-789 PO; +CEFD300C3 PO
[2018-09-02 16:17] LABS: BASOPHILS % (AUTO) 1 % (0-10); EOSINOPHILS # (AUTO) 0.2 10^3/uL (0.0-0.3); EOSINOPHILS % (AUTO) 3 % (0-10); HEMATOCRIT 34 % (35-52); HEMOGLOBIN 11.3 G/DL (11.5-16.0); LYMPHOCYTES % (AUTO) 12 % (12-44); MEAN CORPUSCULAR HEMOGLOBIN 30 PG (25-34); MEAN CORPUSCULAR HGB CONC 34 G/DL (32-36); MEAN CORPUSCULAR VOLUME 90 FL (80-99); MEAN PLATELET VOLUME 8.9 FL (7.4-10.4); MONOCYTES % (AUTO) 12 % (0-12); NEUTROPHILS % (AUTO) 73 % (42-75); PLATELET COUNT 473 10^3/uL (130-400); RED CELL DISTRIBUTION WIDTH 13.9 % (10.0-14.5); WHITE BLOOD COUNT 8.3 10^3/uL (4.3-11.0)
[2018-09-02 16:31] LABS: ALANINE AMINOTRANSFERASE 45 U/L (0-55); ALBUMIN 3.1 GM/DL (3.2-4.5); ALKALINE PHOSPHATASE 342 U/L (40-136); BILIRUBIN,TOTAL 0.5 MG/DL (0.1-1.0); BUN/CREATININE RATIO 13; CALCIUM 9.2 MG/DL (8.5-10.1); CARBON DIOXIDE 24 MMOL/L (21-32); CHLORIDE 100 MMOL/L (98-107); CREATININE SERUM 0.68 MG/DL (0.60-1.30); GFR ESTIMATED > 60; GLUCOSE 99 MG/DL (70-105); MAGNESIUM 1.6 MG/DL (1.8-2.4); POTASSIUM 4.2 MMOL/L (3.6-5.0); SODIUM 135 MMOL/L (135-145); TOTAL PROTEIN 6.6 GM/DL (6.4-8.2)
--- NOTE | 2018-09-02 16:36 | ED General ---
General Chief Complaint: Respiratory Problems Stated Complaint: LEGS SWELLING,DIARRHEA,WEAKNESS Nursing Triage Note: pt presents to ed with complaints of increased fatigue, melgar, lower extremity swelling, diahrrea, and cough. pt states she was discharged thursday for pneumonia. Nursing Sepsis Screen: No Definite Risk Source of Information: Patient, Family Exam Limitations: No Limitations (ARDEN SAWANT STUDENT) History of Present Illness Date Seen by Provider: Sep 02, 2018 Time Seen by Provider: 16:15 Initial Comments 88 y/o F presented for increased fatigue, bilateral lower extremity swelling, cough and diarrhea. She was admitted to on Thursday (08-28-18) for pneumonia and was discharged on Thursday (08-31-18) on Cefdinir. Yesterday, she began having bilateral lower extremity swelling for which she elevated her legs over night. She stated that the swelling did decrease over night but she felt that she needed to be checked out. Since discharge, she has also had increased fatigue and a continued non-productive cough. She denied fever and chills. She did have constipation upon discharge, so she took a laxative for this. Since then, she has had diarrhea/loose stools. She denies blood in her stool or urine. Timing/Duration: 1-2 Days Severity: Mild Modifying Factors: improves with Other (lower extremity elevation improved the swelling) Associated Systoms: No Chest Pain; Cough; No Fever/Chills; Headaches; No Nausea /Vomiting, No Rash, No Shortness of Air (ARDEN SAWANT STUDENT) Timing/Duration: Changing Over Time Modifying Factors: improves with Rest, improves with Other (lower extremity elevation improved the swelling) Associated Systoms: No Fever/Chills, No Shortness of Air (JAYESH CALLOWAY MD ) Allergies and Home Medications Allergies Coded Allergies: Penicillins (Verified Allergy, Unknown, 02/16/08) Sulfa (Sulfonamide Antibiotics) (Verified Allergy, Unknown, 02/16/08) erythromycin base (Verified Allergy, Unknown, 02/16/08) Home Medications Acetaminophen with Codeine 1 Each Tablet, 1 EACH PO 4 times a day PRN for cough Prescribed by: ALEXANDRO LA on 08/31/18 1124 Aspirin 81 Mg Tablet.dr, 81 MG PO HS, (Reported) Calcium Carbonate/Vitamin D3 1 Each Tablet, 1 TAB PO HS, (Reported) Cefdinir 300 Mg Capsule, 300 MG PO ttwice a day Prescribed by: ALEXANDRO LA on 08/31/18 1123 Lisinopril 5 Mg Tablet, 5 MG PO DAILY, (Reported) Multivits,Ca,Minerals/Iron/FA 1 Each Tablet, 1 EACH PO DAILY, (Reported) Patient Home Medication List Home Medication List Reviewed: Yes (ARDEN SAWANT) Home Medication List Reviewed: Yes (JAYESH CALLOWAY MD) Review of Systems Review of Systems Constitutional: No chills, No fever; malaise EENTM: no symptoms reported Respiratory: cough; No phlegm, No short of breath Cardiovascular: No chest pain; edema; No palpitations Gastrointestinal: No abdominal pain; diarrhea; No dysphagia, No loss of appetite, No melena Genitourinary: No dysuria, No frequency, No hematuria Musculoskeletal: no symptoms reported Skin: no symptoms reported Psychiatric/Neurological: Headache; Denies Numbness, Denies Weakness Hematologic/Lymphatic: No Symptoms Reported Immunological/Allergic: no symptoms reported (ARDEN SAWANT) Respiratory: No orthopnea, No short of breath Gastrointestinal: No abdominal pain; diarrhea (JAYESH CALLOWAY MD) Past Jullkly-Qcvrbk-Vynbeh Hx Past Med/Social Hx: Reviewed Nursing Past Med/Soc Hx (JAYESH CALLOWAY MD) Patient Social History Alcohol Use: Denies Use Recreational Drug Use: No Smoking Status: Never a Smoker Recent Foreign Travel: No Contact w/Someone Who Travel: No Recent Infectious Disease Expo: No Recent Hopitalizations: Yes (08/28/18 to 08/31/18 for pneumonia, discharged on cefdinir) Physical Abuse: No Sexual Abuse: No Mistreated: No Fear: No (ARDEN SAWANT) Immunizations Up To Date Tetanus Booster (TDap): Unknown Date of Pneumonia Vaccine: Apr 03, 2008 Date of Influenza Vaccine: Apr 27, 2018 (ARDEN SAWANT) Seasonal Allergies Seasonal Allergies: Yes (ARDEN SAWANT) Past Medical History Surgeries: Yes (TUBAL PREG, knee surgery) Respiratory: Yes (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, 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) Pneumonia Currently Using CPAP: No Currently Using BIPAP: No Cardiac: Yes High Cholesterol, Hypertension Neurological: No Reproductive Disorders: No Sexually Transmitted Disease: No HIV/AIDS: No Genitourinary: No Gastrointestinal: Yes Chronic Constipation Musculoskeletal: Yes Arthritis Endocrine: No HEENT: Yes Cataract Loss of Vision: Denies Hearing Impairment: Denies Cancer: No Melanoma Psychosocial: No Anxiety Integumentary: No Blood Disorders: No Adverse Reaction/Blood Tranf: No ([facility]) Family Medical History Reviewed Nursing Family Hx (JAYESH CALLOWAY MD) Neoplasm 19 MOTHER Cancer ([facility]) Physical Exam Vital Signs Vital Signs - First Documented 09/02/18 15:52 Temp 97.0 Pulse 96 Resp 16 B/P (MAP) 155/93 (113) Pulse Ox 94 (JAYESH CALLOWAY MD) Vital Signs Capillary Refill : Less Than 3 Seconds ([facility]) Height, Weight, BMI Height: 5'3.00" Weight: 123lbs. 8.0oz. [id number]; 22.2 BMI Method:Stated General Appearance: No Apparent Distress, WD/WN HEENT: PERRL/EOMI, Pharynx Normal, Moist Mucous Membranes Neck: Full Range of Motion, Normal Inspection; No JVD Respiratory: Chest Non Tender, Lungs Clear, Normal Breath Sounds, No Accessory Muscle Use, No Respiratory Distress Cardiovascular: Regular Rate, Rhythm, No JVD, No Murmur, Normal Peripheral Pulses Gastrointestinal: Normal Bowel Sounds, No Organomegaly, Non Tender, Soft Extremity: Normal Inspection, Normal Range of Motion, Non Tender, No Calf Tenderness, Pedal Edema (trace bilateral edema) Neurologic/Psychiatric: Alert, Oriented x3, No Motor/Sensory Deficits, Normal Mood/Affect Skin: Normal Color, Warm/Dry (SAVANAARDEN Ines STUDENT) General Appearance: No Apparent Distress, WD/WN Respiratory: Lungs Clear, Normal Breath Sounds; No Crackles Cardiovascular: Regular Rate, Rhythm, No Murmur Back: Normal Inspection, No CVA Tenderness, No Vertebral Tenderness Neurologic/Psychiatric: Alert, Oriented x3 (JAYESH CALLOWAY MD) Progress/Results/Core Measures Suspected Sepsis Recent Fever Within 48 Hours: No Infection Criteria Present: Documented Infection New/Unexplained Altered Menta: No Sepsis Screen: No Definite Risk SIRS Temperature:97.0 Pulse: 96 Respiratory Rate: 16 Laboratory Tests 09/02/18 15:38: White Blood Count 8.3 Blood Pressure 155 /93 Mean: 113 Laboratory Tests 09/02/18 15:38: Platelet Count 473H (SAVANAARDEN Chacon MADIHA) Results/Orders Lab Results Laboratory Tests Test 09/02/18 15:38 Range/Units White Blood Count 8.3 4.3-11.0 10^3/uL Red Blood Count 3.75 L 4.35-5.85 10^6/uL Hemoglobin 11.3 L 11.5-16.0 G/DL Hematocrit 34 L 35-52 % Mean Corpuscular Volume 90 80-99 FL Mean Corpuscular Hemoglobin 30 25-34 PG Mean Corpuscular Hemoglobin Concent 34 32-36 G/DL Red Cell Distribution Width 13.9 10.0-14.5 % Platelet Count 473 H 130-400 10^3/uL Mean Platelet Volume 8.9 7.4-10.4 FL Neutrophils (%) (Auto) 73 42-75 % Lymphocytes (%) (Auto) 12 12-44 % Monocytes (%) (Auto) 12 0-12 % Eosinophils (%) (Auto) 3 0-10 % Basophils (%) (Auto) 1 0-10 % Neutrophils # (Auto) 6.0 1.8-7.8 X 10^3 Lymphocytes # (Auto) 1.0 1.0-4.0 X 10^3 Monocytes # (Auto) 1.0 0.0-1.0 X 10^3 Eosinophils # (Auto) 0.2 0.0-0.3 10^3/uL Basophils # (Auto) 0.0 0.0-0.1 10^3/uL Sodium Level 135 135-145 MMOL/L Potassium Level 4.2 3.6-5.0 MMOL/L Chloride Level 100 98-107 MMOL/L Carbon Dioxide Level 24 21-32 MMOL/L Anion Gap 11 5-14 MMOL/L Blood Urea Nitrogen 9 7-18 MG/DL Creatinine 0.68 0.60-1.30 MG/DL Estimat Glomerular Filtration Rate > 60 BUN/Creatinine Ratio 13 Glucose Level 99 70-105 MG/DL Calcium Level 9.2 8.5-10.1 MG/DL Corrected Calcium 9.9 8.5-10.1 MG/DL Magnesium Level 1.6 L 1.8-2.4 MG/DL Total Bilirubin 0.5 0.1-1.0 MG/DL Aspartate Amino Transf (AST/SGOT) 40 H 5-34 U/L Alanine Aminotransferase (ALT/SGPT) 45 0-55 U/L Alkaline Phosphatase 342 H 40-136 U/L Total Protein 6.6 6.4-8.2 GM/DL Albumin 3.1 L 3.2-4.5 GM/DL (JAYESH CALLOWAY MD) My Orders Orders - JAYESH CALLOWAY MD Cbc With Automated Diff (09/02/18 16:06) Comprehensive Metabolic Panel (09/02/18 16:06) Magnesium (09/02/18 16:06) (JAYESH CALLOWAY MD) Vital Signs/I&O 09/02/18 15:52 Temp 97.0 Pulse 96 Resp 16 B/P (MAP) 155/93 (113) Pulse Ox 94 (JAYESH CALLOWAY MD) Vital Signs/I&O Capillary Refill : Less Than 3 Seconds (ARDEN SAWANT STUDENT) Blood Pressure Mean: 113 Progress Note : Time: 16:30 Progress Note CBC,CMP ordered. Discussed with patient about addition of probiotics to the cefdinir and for 1-2 weeks following completion of antibiotics. (ARDEN SAWANT STUDENT) Progress Note : Progress Note Seen and evaluated the patient and agree with above except as indicated. I have directed the plan of care. Patient is here with report of lower extremity swelling that is a little better and diarrhea. She is currently on cefdinir after hospitalization for pneumonia ratio is 2 days left. Denies blood in her stool. We will check basic labs and compared to previous. Monitor patient. 1650: Labs reviewed and showed no acute findings other than mildly elevated alkaline phosphatase. This may be the result of the cefdinir. At this point, safe for discharge with follow-up. She has follow-up with Dr. Oro next Thursday for posthospitalization evaluation. Discharged home with return precautions. Patient verbalize understanding instructions and agreement with plan. (JAYESH CALLOWAY MD) Departure Impression Primary Impression: Diarrhea Qualified Codes: R19.7 - Diarrhea, unspecified Additional Impression: Edema Qualified Codes: R60.9 - Edema, unspecified Disposition: 01 HOME, SELF-CARE Condition: Stable Departure-Patient Inst. Decision time for Depature: 17:01 (JAYESH CALLOWAY MD) Referrals: EZRA ORO MD (PCP/Family) Primary Care Physician Patient Instructions: Dependent Edema (DC), Diarrhea in Adolescents and Adults Add. Discharge Instructions: All discharge instructions reviewed with patient and/or family. Voiced understanding. You should initiate probiotics and take that per package directions for the next week or 2 at least. Drink plenty of fluids and eat a normal diet. Follow up with your doctor next Thursday as scheduled. You should elevate your legs especially at night to decrease swelling. Return for worse pain, fever, vomiting, weakness, breathing problems, increased swelling, chest pain or other concerns as needed. Copy Copies To 1: EZRA ORO MD, MARY K STUDENT Sep 02, 2018 16:36 JAYESH CALLOWAY MD Sep 02, 2018 17:03
[2018-09-02 17:10] VITALS: BP 140/78
== END 2018-09-02 17:10 | disposition home or self-care (01) ==
LOC: EDUNIT# 15:43 → ER 15:44
DX: R19.7 Diarrhea, unspecified (principal); R60.0 Localized edema; E78.00 Pure hypercholesterolemia, unspecified; I10 Essential (primary) hypertension; F41.9 Anxiety disorder, unspecified; Z85.820 Personal history of malignant melanoma of skin; Z87.19 Personal history of other diseases of the digestive system; Z88.0 Allergy status to penicillin; Z88.2 Allergy status to sulfonamides; Z88.1 Allergy status to other antibiotic agents; Z79.82 Long term (current) use of aspirin; Z87.01 Personal history of pneumonia (recurrent); Z98.890 Other specified postprocedural states
CPT/HCPCS: 36415; 80053; 83735; 85025; 99282

== ENCOUNTER → 2018-10-27 | Outpatient (CLI) | payer MEDICARE ==
--- NOTE | 2018-10-27 17:02 | Diagnostic Imaging Report ---
INDICATION: Injury. EXAMINATION: Three views of the right shoulder were obtained. FINDINGS: There is a fracture through the distal third of the clavicle without separation of the AC joint. 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 The visualized adjacent ribs and pleura are unremarkable. IMPRESSION: Distal third right clavicular fracture without evidence for AC or CC joint separation. 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 Results phoned to the ordering physician. Dictated by: Dictated on workstation # [id number]
== END ==
LOC: RAD 16:33
PROVIDERS: ATTEND Physician Assistant
DX: S42.031A Displaced fracture of lateral end of right clavicle, initial encounter for closed fracture (principal); M19.011 Primary osteoarthritis, right shoulder; W19.XXXA Unspecified fall, initial encounter
CPT/HCPCS: 73030

== ENCOUNTER → 2018-12-06 | Outpatient (CLI) | payer MEDICARE ==
--- NOTE | 2018-12-06 10:54 | Diagnostic Imaging Report ---
INDICATION: Right clavicle fracture followup. FINDINGS: Two views of the right clavicle are obtained and compared with study dated 10/27/2018. There is an oblique fracture of the distal aspect of the clavicle with superior displacement of the distal component by half the width of the shaft. There is a small fracture of the superior corner of the opposing acromion process. IMPRESSION: Healing fractures of the distal right clavicle and acromion in stable alignment. Dictated by: Dictated on workstation # [id number]
== END ==
LOC: RAD 09:54
PROVIDERS: ATTEND Physician Assistant
DX: S42.031D Displaced fracture of lateral end of right clavicle, subsequent encounter for fracture with routine healing (principal)
CPT/HCPCS: 73000

== ENCOUNTER → 2019-08-24 | Outpatient (CLI) | payer MEDICARE ==
--- NOTE | 2019-08-24 12:55 | Diagnostic Imaging Report ---
INDICATION: Routine screening. COMPARISON: 08/23/2018 and 07/09/2017. TECHNIQUE: 2D and 3D bilateral screening mammography was performed with CAD. FINDINGS: Scattered fibroglandular densities are identified bilaterally. The circumscribed density in the outer right breast retroareolar region appears stable. There are benign calcifications. No spiculated mass or malignant appearing microcalcifications are seen. The axillae are unremarkable. IMPRESSION: No mammographic features suspicious for malignancy are identified. ACR BI-RADS Category 2: Benign findings. Result letter will be mailed to the patient. Note: At least 10% of breast cancer is not imaged by mammography. Dictated by: Dictated on workstation # [id number]
== END ==
LOC: RAD 09:26
PROVIDERS: ATTEND Internal Medicine
DX: Z12.31 Encounter for screening mammogram for malignant neoplasm of breast (principal)
CPT/HCPCS: 77067

== ENCOUNTER → 2020-08-27 | Outpatient (CLI) | payer MEDICARE ==
[~2020-08-27] MED LIST changes: -MECL-106 PO; +MECL-149 PO
--- NOTE | 2020-08-27 15:47 | Diagnostic Imaging Report ---
INDICATION: Routine screening. COMPARISON: 08/24/2019 and 08/23/2018. TECHNIQUE: 2D and 3D bilateral screening mammography was performed with CAD. FINDINGS: Both breasts are heterogeneously dense, limiting the sensitivity of mammography. The circumscribed nodule in the retroareolar outer right breast is stable. No new mass or malignant appearing microcalcifications are seen. There are benign calcifications noted. The axillae are unremarkable. IMPRESSION: No mammographic features suspicious for malignancy are identified. ACR BI-RADS Category 2: Benign findings. Result letter will be mailed to the patient. Note: At least 10% of breast cancer is not imaged by mammography. Dictated by: Dictated on workstation # [id number]
== END ==
LOC: RAD 09:14
PROVIDERS: ATTEND Internal Medicine
DX: Z12.31 Encounter for screening mammogram for malignant neoplasm of breast (principal)
CPT/HCPCS: 77063; 77067

== ENCOUNTER 2020-10-03 10:30 | Outpatient (RCR) | payer MEDICARE ==
[~2020-10-03 10:30] MED LIST changes: +LISI-729 PO
== END 2021-01-01 | disposition home or self-care (01) ==
LOC: CARD 10:30
PROVIDERS: ATTEND Internal Medicine
DX: R00.2 Palpitations (principal)
CPT/HCPCS: 93225; 93226

== ENCOUNTER → 2020-11-27 | Outpatient (CLI) | payer MEDICARE | LOC: CARD 12:42 | PROVIDERS: ATTEND Internal Medicine Cardiovascular Disease | DX: I10 Essential (primary) hypertension (principal); I36.1 Nonrheumatic tricuspid (valve) insufficiency; I25.10 Atherosclerotic heart disease of native coronary artery without angina pectoris | CPT/HCPCS: 93306 ==